=== PATIENT | male | born 1935 | race Caucasian/White ===

== ENCOUNTER → 2016-11-24 | Outpatient (CLI) | payer BC, MEDICARE ==
--- NOTE | 2016-12-17 00:03 | ECWPNPC ---
PATIENT NAME: ASA SURESH V : 1935 GENDER: MALE VISIT DATE: 11/24/2016 DISCHARGE DATE: 11/24/16 1257 VISIT LOCKED DATE TIME: PHYSICIAN: HELEN RAI RESOURCE: HELEN RAI REASON FOR APPOINTMENT 1. BACK PAIN HISTORY OF PRESENT ILLNESS NEW PATIENT CONSULT: WHEN DID YOUR PAIN FIRST START? . BRIEFLY DESCRIBE HOW YOUR PAIN STARTED? . HOW DOES YOUR PAIN CHANGE WITH TIME? . DOES YOUR PAIN AWAKEN YOU FROM SLEEP? . HOW MANY HOURS OF SLEEP DO YOU NORMALLY GET? . ANY DIAGNOSTIC TESTING? . FACILITY WHERE TESTS WERE DONE? ____. PAIN TREATMENT TREATMENT YES CANCER HAVE YOU EVER HAD ANY TYPE OF CANCER?NO NO. PAIN SCREENING: PATIENT HAS A COMPLAINT OF ACUTE OR CHRONIC PAIN YES FALL RISK SCREENING: SCREENING :NO FALLS IN THE PAST YEAR FLORES INVENTORY: QUESTIONNAIRE ASSESSEDTBD DID NOT COMPLETE FLORES'S DEPRESSION SELF INVENTORY. DENIES WHEN ASKED ANY SUICIDAL OR HOMICIDAL IDEATION SCORE VALUE CALCULATED TBD TODAY'S VISIT: NOTES: REFERRED BY Tj RODRIGUEZ PA-C FOR LOW BACK AND LEG PAIN . PAIN HAS BEEN PRESENT FOR AT LEAST ONE YEAR ANS HAS BEEN PARTICULARLY BAD OVER THE LAST MONTH. PAIN INTERMITTANTLY RADIATES TO BOTH LEGS. HAS BEEN HAVING TROUBLE WITH WALKING. HAS BEEN 'SHUFFLING&QUOT;. HAS SOME TROUBLE STOPPING. WAS SEEN AT [facility] AND HAD INJECTIONS TO LOW BACK WHICH WAS HELPFUL PER DAUGHTER AND PER PATIENT FOR A WEEK. MRI RADIOLOGY DONE. NO RECENT FALLS. NO DIFFERENCE IN SIDES. NO DIFFICULTY WITH BOWELS. NOCTURIA X 1. SEES CARDIOLOGY IN [place]. NO. CURRENT MEDICATIONS TAKING JANUMET 50-500 MG TABLET 1 TABLET WITH MEALS ORALLY TWICE A DAY TAKING SIMVASTATIN 20 MG TABLET 1 TABLET IN THE EVENING ORALLY ONCE A DAY TAKING MULTIVITAMINS CAPSULE 1 TABLET ORALLY ONCE A DAY TAKING FISH OIL 1000 MG CAPSULE 1 CAPSULE ORALLY ONCE A DAY TAKING IRBESARTAN 300 MG TABLET 1 TABLET ORALLY ONCE A DAY TAKING ASPIRIN 81 MG 1 TAB ORAL DAILY TAKING BYSTOLIC 20 MG TABLET 1 TABLET ORALLY ONCE A DAY TAKING HYDROCHLOROTHIAZIDE 12.5 MG TABLET 1 TABLET ORALLY ONCE A DAY (DOSE NOT CONFIRMED) TAKING AMLODIPINE BESYLATE 5 MG TABLET 1 TABLET ORALLY ONCE A DAY (DOSE NOT CONFIRMED) TAKING DOXAZOSIN MESYLATE 1 MG TABLET 1 TABLET ORALLY ONCE A DAY (DOSE NOT CONFIRMED) NOT-TAKING CARVDILOL 3.125MG TABLET DIRECTED ORAL NOT-TAKING VITAMIN D-[address] 2000 UNIT TABLET 1 TABLET ORALLY ONCE A DAY NOT-TAKING FLOMAX 0.4 MG CAPSULE 1 CAPSULE 30 MINUTES AFTER THE SAME MEAL EACH DAY ORALLY ONCE A DAY MEDICATION LIST REVIEWED AND RECONCILED WITH THE PATIENT PAST MEDICAL HISTORY HYPERLIPIDEMIA KIDNEY STONE HTN DM, 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 SURGICAL HISTORY OPEN HEART SURGERY (. [facility]) 2006 SOCIAL HISTORY GENERAL: TOBACCO USE ARE YOU A:NONSMOKER RECREATIONAL DRUG USE DRUG USE?NO CAFFEINE CAFFEINE USE?YES HOW OFTEN AND HOW MUCH? 1 CUP COFFEE PER DAY PSYCHOLOGICAL HX TREATMENTNO PAIN CLINIC PFS, CLERGY, PUBLIC HEALTH REFERRALS CLERGY REFERRAL NEEDED?NO WAS THE PROVIDER NOTIFIED OF ANY PERTINENT INFO?NO PFS REFERRAL NEEDED?NO PUBLIC HEALTH REFERRAL NEEDED?NO PATIENT: ____. ADVANCED DIRECTIVES HEALTH CARE PROXY?NO HEALTH CARE PROXY INFORMATION GIVEN. POWER OF SORTING SUPERVISOR?NO HOSPITALIZATION/MAJOR DIAGNOSTIC PROCEDURE SURGERY REVIEW OF SYSTEMS CONSTITUTIONAL: ANY CHANGE IN YOUR MEDICAL CONDITION? NO . CHILLS NO . FEVER NO . INFECTION: DO YOU HAVE NEW INFECTIONS? NO . DO YOU HAVE HISTORY OF MRSA? NO . MUSCULOSKELETAL: ANY NEW PATTERNS OF PAIN OR NUMBNESS? NO . SYTEMIC LUPUS NO . GASTROENTEROLOGY: ANY NEW CHANGE IN BOWEL CONTROL? NO . BARRETTS ESOPHAGUS NO . CIRRHOSIS NO . HEPATITIS NO . LIVER FAILURE NO . ACID REFLUX NO . UNEXPLAINED WEIGHT LOSS NO . GENITOURINARY: ANY NEW CHANGE IN BLADDER CONTROL? NO . IS THERE A CHANCE YOU COULD BE ? NO . HEMATOLOGY/LYMPH: DO YOU TAKE ANY BLOOD THINNERS? (FOR EXAMPLE- COUMADIN, PLAVIX, AGGRENOX, PLATEL, PRADAXA, OR XARELTO) NO . WHEN WAS YOUR LAST DOSE? DATE: TIME: . LOW PLATELET COUNT NO . SICKLE CELL DISEASE NO . VON WILLIEBRANDS NO . FACTOR V LEIDEN NO . THALLASEMIA NO . ANEMIA NO . EASY BRUISING NO . NEUROLOGY: HAVE YOU FALLEN IN THE PAST 6 MONTHS? NO . ANY NEW EXTREMITY NUMBNESS OR WEAKNESS? NO . HEAD INJURY NO . DEMENTIA NO . CEREBRAL PALSY NO . MULTIPLE SCLEROSIS NO . DIZZINESS YES - RIGHT NOW . HEADACHE NO . STROKES NO . VERTIGO NO . CARDIOLOGY: DO YOU HAVE A PACEMAKER OR DEFIBRILLATOR? NO . ANGINA NO . HEART ATTACK 2007 - CABG. . HEART SURGERY YES . CONGESTIVE HEART FAILURE/FLUID OVERLOAD NO . CHEST PAIN NO . HIGH BLOOD PRESSURE YES - ON MULTIPLE MEDS . IRREGULAR HEART BEAT NO . RESPIRATORY: HAVE YOU BEEN SICK IN THE PAST WEEK? NO . FEVER NO . FLU LIKE SYMPTOMS? NO . CPAP NO . BYPAP NO . ASTHMA NO . EMPHYSEMA NO . CHRONIC LUNG DISEASES NO . SHORTNESS OF BREATH ON EXERTION NO . DO YOU USE ANY TYPE OF TOBACCO (SMOKE, SMOKELESS, CHEW)? QUIT 50 YEARS AGO . COUGH YES, WITH WHITE/YELLOW PRODUCTION . SNORING NO . INTEGUMENTARY: DO YOU HAVE ANY RASHES OR OPEN SORES? NO - DRY BUT NO EXCEMA . ALLERGIC/IMMUNO: ARE YOU ALLERGIC TO SHELLFISH OR IV DYE? NO . ANY NEW ALLERGIES? NO . PSYCHIATRIC: DO YOU HAVE THOUGHTS OF HURTING YOURSELF OR SOMEONE ELSE? NO . ARE YOU ABUSED, NEGLECTED, OR IN AN UNSAFE ENVIRONMENT? NO . ENDOCRINOLOGY: ARE YOU DIABETIC? YES . THYROID DISORDER NO . OTHER: DO YOU NEED ANY PRESCRIPTIONS? NO . IF YES, PLEASE LIST: ____ . ANY NEW PROBLEMS WITH YOUR MEDICATIONS? NO . WHEN DID YOU LAST EAT? ____ . WHEN DID YOU LAST DRINK? ____ . WHAT DID YOU LAST DRINK? ____ . NAME OF PERSON DRIVING YOU HOME? ____ . DO YOU HAVE ANY OTHER QUESTIONS OR CONCERNS NO . REVIEWED BY: PROVIDER: HELEN RAI NETWORK LEAD . VITAL SIGNS WT 194 LBS, HT 5'8", BMI 29.49 INDEX, BP 86/51 MM HG, HR 75 /MIN, RR 16 /MIN, TEMP 96.4 F, OXYGEN SAT % 99%, NA INITIALS SC 11:31RN IS AWARE OF PT"S [id number] B/P 96/57. Abdirahman RAMOS RN. EXAMINATION GENERAL EXAMINATION: PSYCHALERT , ORIENTED X 3 , APPROPRIATE MOOD AND AFFECT , TALKATIVE AND JOKING. HEENT:HARD OF HEARING., NORMOCEPHALIC, NO LYMPHADENOPATHY, NO THYROMEGLY. LUNGS:CLEAR TO AUSCULTATION BILATERALLY, NO WHEEZES, RALES OR RHONCHI. HEART:NORMAL S1S2, NO MURMURS, CLICK OR RUBS. MUSCULOSKELETAL:MUSCLE STRENGTH TESTING 5/5 BILATERAL LOWER EXTREMITIES, PALPATION: POSITIVE FOR PAIN OVER LUMBAR SPINOUS PROCESSES AND ACROSS THE LUMBOSACRAL AXIS. SLOW TO RISE TO STANDING POSITION. POSITIVE SLR AT 20 DEGREES BILATERALLY.. NEUROLOGIC EXAM:CN'S II-XII GROSSLY INTACT, WITH THE EXCEPTION OF HEARING. NO SPECIFIC SENSORY DEFICET IN LOWER EXTREMITIES. DIAGNOSTIC TESTS REVIEWEDMRI OF LUMBAR SPINE WITH AND WITHOUT CONTRAST COMPLETED ON 02/27/16. THIS DEMONSTRATES 1. DIFFUSE DISC BULGE AT L2-3 WITH MINIMAL THECAL SAC COMPRESSION. 2. MINIMAL CENTRAL CANAL STENOSIS AT THE L3-4 LEVEL SECONDARY TO DISC BULGE, LIGAMENTOUS AND FACET HYPERTROPHY. 3. SEVERE CENTRAL CANAL STENOSIS AT THE L4-5 LEVEL SECONDARY TO DISC BULGE , LIGAMENTOUS AND FACET HYPERTROPHY AND BILATERAL SYNOVIAL CYSTS. THE CYSTS HAVE DECREASED IN SIZE SINCE PREVIOUS STUDY OF 09/24/15. 4. DIFFUSE DISC BULGE AT THE L5S1 LEVEL. THERE IS COMPRESSION OF THE L5 NERVES IN THE NEURAL FORAMINA.. 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 NEELY INFORMATION REGARDING PROCEDURE GIVEN TO PT.. PROCEDURE CODES FA211 ESTABILISHED PATIENT [facility] FACILITY CHARGE FOLLOW UP AFTER INJECTION (REASON: MAGGY - NEED INJECTION /PROCEDURE NOTES FROM DR STORM AT [facility]. KATHERINE NEED DAUGHTER ON FIRST CONTACT) ELECTRONICALLY SIGNED BY [place] ON 12/16/2016 AT 01:27 PM EST DISCLAIMER : THIS IS A VISIT SUMMARY EXTRACTED FROM THE [employer] CHART. IT IS NOT A COPY OF THE [employer] PROGRESS NOTE. MTDEdward
== END | disposition home or self-care (01) ==
LOC: M PAIN 11:20
PROVIDERS: ATTEND Nurse Practitioner Family
DX: G89.29 Other chronic pain (principal); M51.26 Other intervertebral disc displacement, lumbar region; R29.898 Other symptoms and signs involving the musculoskeletal system; M48.06 Spinal stenosis, lumbar region; E78.5 Hyperlipidemia, unspecified; I10 Essential (primary) hypertension; E11.9 Type 2 diabetes mellitus without complications; I25.2 Old myocardial infarction; M12.88 Other specific arthropathies, not elsewhere classified, other specified site; M51.27 Other intervertebral disc displacement, lumbosacral region; M71.38 Other bursal cyst, other site; Z79.82 Long term (current) use of aspirin; Z79.899 Other long term (current) drug therapy; Z87.74 Personal history of (corrected) congenital malformations of heart and circulatory system

== ENCOUNTER 2016-12-01 12:36 | Emergency (ER) | payer BC, MEDICARE ==
--- NOTE | 2016-12-01 14:15 | REP ---
CHEST X-RAY: Two views. HISTORY: Cough. FINDINGS: AP and lateral views of the chest show the clear well inflated lungs and sharp pleural angles. Cardiomediastinal silhouette is remarkable only for median sternotomy wires and surgical clips. There are degenerative changes in the thoracic spine. Pulmonary vasculature is not increased. IMPRESSION: Prior sternotomy. No acute disease. Signed by Amanuel Lewis MD 12/01/2016 03:01 P
[2016-12-01 14:45] LABS: BASO % 0.6 % (0.0-1.0); EOS # 0.3 K/mm3 (0.0-0.50); LARGE UNSTAINED CELL # 0.1 K/mm3 (0.0-0.4); LARGE UNSTAINED CELL % 0.9 % (0.0-4.0); LYMPH # 1.1 K/mm3 (1.5-4.5); LYMPH % 16.1 % (24.0-44.0); MEAN CORPUSCULAR HEMOGLOBIN 30.6 pg (27.0-33.0); MEAN CORPUSCULAR HGB CONC 33.9 g/dl (32.0-36.5); MEAN CORPUSCULAR VOLUME 90.4 fl (80.0-96.0); MONO # 0.4 K/mm3 (0.0-0.8); MONO % 5.5 % (0.0-5.0); PLATELET COUNT, AUTOMATED 201 k/mm3 (150-450); RED CELL DISTRIBUTION WIDTH 12.5 % (11.5-14.5); WHITE BLOOD COUNT 6.9 K/mm3 (4.0-10.0)
[2016-12-01 15:06] LABS: CALCIUM LEVEL 9.1 MG/DL (8.8-10.2); CREATININE FOR GFR 1.54 MG/DL (0.70-1.30); GLOMERULAR FILTRATION RATE 46.2 (>35); POTASSIUM SERUM 4.1 MEQ/L (3.5-5.1)
--- NOTE | 2016-12-01 16:03 | REP ---
CT of the chest without IV contrast: Comparison is the plain film PA and lateral study performed earlier today. There are no comparison chest CTs. There are no lung masses or nodules. There are no infiltrates or effusions. There is no mediastinal or axillary lymphadenopathy. In the absence of IV contrast the study is insensitive for hilar adenopathy. The thoracic aorta is unremarkable. There is occasional calcified atheroma. Cardiac size is normal. There is no pericardial effusion. There are for a round low density lesions in the medial lateral segments of the hepatic left lobe, unchanged in size shape or appearance from the abdomen CT of 04/30/2014, likely hepatic cysts. The right lobe is unremarkable. The gallbladder, pancreas, spleen, adrenals and visualized renal upper poles are unremarkable. Impression: Negative CT scan of the chest. There are several low density lesions in the left lobe of the liver, unchanged, compatible with hepatic cysts. Signed by Richard Talbert MD 12/01/2016 03:55 P
[2016-12-01] MEDS ORDERED: ALBUTEROL 90 MCG/ACT 8GM HFA INHALER As Ordered ONE (16:23)
--- NOTE | 2016-12-01 16:59 | EDDOCDS ---
Physician Documentation [facility] Name: Dom Aldrich Age: 81 yrs Sex: Male : 1935 Arrival Date: 12/01/2016 Time: 12:36 Bed 18 Private MD: Sridhar Guillen Disposition: 12/01 16:13 Critical Care: Critical care not applicable. pc Disposition: 12/01/16 16:37 Discharged to Home/Self Care. Impression: Cough - post-infectious . - Condition is Stable. - Discharge Instructions: Cough, Adult. - Prescriptions for Albuterol Sulfate 90 mcg/actuation Inhalation HFA Aerosol Inhaler - inhale 2 puff by INHALATION route every 4 hours As needed; 1 Inhaler. - Medication Reconciliation, Local Pharmacy Hours form. - Follow up: Sridhar Guillen; When: Call to arrange an appointment; Reason: Recheck today's complaints, Continuance of care. - Problem is an ongoing problem. - Symptoms have improved. HPI: 14:32 This 81 yrs old Male presents to ER via Walkin/Carried/Asstd with complaints pc of Chest Congestion, Cough. 14:32 The history is obtained from the patient, the patient's family/friend. He has had a pc nonproductive cough for 2+ weeks. He denies having any fevers or chills, chest pain, orthopnea or PND. He was seen at an urgent care last week, when his daughter first knew of his symptoms, and was started on ABX for bronchitis. He has not been eating very well, is less energetic than usual and she does not feel he is improving. Historical: - Allergies: no known allergies; - Home Meds: 1. cefuroxime axetil 500 mg Oral tab 2 times per day 2. Tylenol PM 25-500 mg-mg/mL Oral soln daily 3. irbesartan 300 mg oral tab once daily 4. Janumet 50-500 mg oral tab 5. aspirin 81 mg Oral tab once daily 6. Bystolic 10 mg oral tab once daily 7. Fish Oil Oral daily 8. multivitamin Oral tab daily 9. hydrochlorothiazide 25 mg Oral tab once daily 10. simvastatin 20 mg Oral tab once daily 11. amlodipine 2.5 mg Oral tab once daily 12. doxazosin 4 mg oral tab once daily - PMHx: Hypercholesterolemia; Hypertension; Diabetes - NIDDM: controlled; - PSHx: open heart; - The history from nurses notes was reviewed: and I agree with what is documented. - Social history: Smoking status: Patient states former smoker of tobacco. No barriers to communication noted, The patient speaks fluent Malay, Speaks appropriately for age. - : The pt / caregiver states he / she is not on anticoagulants. Home medication list is obtained from the patient, family members. - Hospitalizations: : No recent hospitalization is reported. - Exposure Risk Screening:: None identified. - Immunization history:: All immunizations up-to-date. - Family history: Not pertinent. - Social history:: the patient is a former smoker, the patient does not drink alcohol. ROS: 14:32 All systems are negative except as listed. pc Exam: 14:32 General Appearance: no acute distress, alert, asleep, lying flat on his right side. pc 14:32 EENT: normal eye inspection, ears, nose and throat normal, pharynx normal, mucous membranes moist 14:32 Neck: The exam reveals no acute abnormalities. ROM is normal and painless. No nuchal rigidity is noted.. 14:32 Respiratory: no respiratory distress, normal breath sounds, chest non-tender. 14:32 CVS: regular pulse rate, regular rhythm, normal S1 and S2, no murmurs, strong peripheral pulses, normal capillary refill. 14:32 Abdomen: soft, non-tender, no organomegaly, normal bowel sounds, no masses appreciated, no hernias palpated with/without gravity or Valsalva 14:32 Back: normal inspection. 14:32 Skin: skin color is normal, warm, dry. 14:32 Extremities: The extremities have a grossly normal appearance, are non-tender, without acute ROM abnormalities, no pedal edema. 14:32 Neuro: oriented x 3, cranial nerves normal as tested, no motor deficits, no sensory deficits. 14:32 Psych: normal mood. Vital Signs: 12:38 BP 101 / 53; Pulse 85; Resp 18 S; Temp 97.3(O); Pulse Ox 99% on R/A; Weight 88 kg / dd6 194.01 lbs (R); Height 5 ft. 8 in. (172.72 cm) (R); 14:58 Pulse 66 MON; Pulse Ox 94% ; hs1 14:58 BP 139 / 63 (auto/); hs1 15:13 Pulse 66 MON; Pulse Ox 93% ; hs1 15:13 BP 134 / 63 (auto/); hs1 15:27 Pulse 64 MON; Pulse Ox 95% ; hs1 15:28 BP 158 / 67 (auto/); hs1 15:43 Pulse 66 MON; Pulse Ox 97% ; hs1 15:43 BP 150 / 67 (auto/); hs1 15:58 Pulse 68 MON; Pulse Ox 96% ; hs1 15:58 BP 178 / 72 (auto/); hs1 16:13 BP 172 / 74 (auto/); hs1 16:13 Pulse 68 MON; Pulse Ox 95% ; hs1 16:27 Pulse 70 MON; Pulse Ox 98% ; hs1 16:28 BP 167 / 70 (auto/); hs1 16:57 BP 127 / 61; Pulse 77; Resp 18; Temp 99.1(O); Pulse Ox 98% ; Pain 0/10; hs1 12:38 Body Mass Index 29.50 (88.00 kg, 172.72 cm) dd6 MDM: 13:25 Chest, 2 View (pa\E\lat) Ordered. EDMS 14:28 IV Saline Lock ordered. pc 14:28 Cat Wagon Operator/Pulse Ox/q 30 min VS ordered. pc 14:29 CBC with Diff Ordered. EDMS 14:29 MED Profile Ordered. EDMS 14:29 BNP Ordered. EDMS 14:29 CIP Ordered. EDMS 14:29 Troponin Ordered. EDMS 14:29 ECG WITH READING ER PHYS+CARDIAG ordered. EDMS 14:32 Differential Diagnosis: persistent cough without fever. Plan: labs, EKG, CXR. Test pc interpretation: X-RAY - interpreted by Radiologist and personally reviewed, 2 view chest, no acute disease. 14:47 Test interpretation: EKG. pc 14:57 CBC with Diff Reviewed. pc 15:01 Chest, 2 View (pa\E\lat) Reviewed. pc 15:07 MED Profile Reviewed. pc 15:07 BNP Reviewed. pc 15:07 Troponin Reviewed. pc 15:10 MED Profile Reviewed. pc 15:10 CIP Reviewed. pc 15:10 Troponin Reviewed. pc 15:10 CT Chest Without Contrast Ordered. EDMS 16:13 Data reviewed: old medical records, vital signs, nurses notes, EKG(s), lab test pc results, all radiology studies and available results. Test interpretation: LAB - all labs as ordered have been reviewed, interpreted and considered in the overall management of the clinical presentation; interpreted by Radiologist and personally reviewed, Chest CT; liver densities as on prior studies, else negative. The patient has been re-examined and re-evaluated. The clinical presentation did not require any ED treatment or interventions. Disposition: The historical points, examination findings, and any diagnostic results supporting the provided diagnosis, were discussed with the patient or legal guardian. The need for outpatient follow up with the provider listed on their discharge instructions was discussed. They were encouraged to return to [facility], or the nearest ED, if symptoms worsen/persist, or for any other questions/concerns. 16:14 Ventolin Inhaler 2 puffs Inhalation once; dispense to go: 2 puffs QID prn ordered. pc 16:14 Call Respiratory ordered. pc 16:14 MDI teaching with Spacer ordered. pc 16:19 Call Respiratory complete. hs1 EC:47 Rate is 70 beats/min. Rhythm is regular, Normal Sinus Rhythm with 1st degree heart pc block. QRS [place] is Normal. NE interval is prolonged at 224 msec. QRS interval is normal. QT interval is normal. Q waves are Old in lead III. T waves are Inverted in leads V5, V6. No ST changes noted. Clinical impression: Normal Sinus Rhythm, 1st degree heart block, Inferior CO - age indeterminate, and PRWP. Administered Medications: 16:28 Drug: Ventolin 2 puffs [Ventolin HFA 90 mcg/actuation aerosol inhaler (2 puffs)] Route: rs5 Inhalation; Signatures: Dispatcher [employer] EDDejuan Rubio MD MD pc Elen Martinez RN RN hs1 Rubina Wynn RN RN Cuong Ibrahim RT rs5 EMMETT
--- NOTE | 2016-12-01 17:00 | EDDOCDS ---
Nurse's Notes [facility] Name: Dom Aldrich Age: 81 yrs Sex: Male : 1935 Arrival Date: 12/01/2016 Time: 12:36 Bed 18 Private MD: Sridhar Guillen Diagnosis: [id number] Presentation: 12/01 12:46 Presenting complaint: Patient states: Cough and congestion x 2 weeks. Has been taking ead cefuroxime since , daughter in law reports pt has had no improvement. Adult Sepsis Screening: The patient does not have new or worsening altered mentation. Patient's respiratory rate is less than 22. Systolic blood pressure is greater than 100. Patient has a qSOFA score of 0- Negative Sepsis Screen. Suicide/Homicide risk assessment- the patient denies having any suicidal and/or homicidal ideations and does not present with any other emotional, behavioral or mental health complaints. Status: Patient is not a job service specialist or dependent. Transition of care: patient was not received from another setting of care. 12:46 Acuity: PERRY Level 4 ead 12:46 Method Of Arrival: Walkin/Carried/Asstd ead Triage Assessment: 12:51 General: Appears in no apparent distress, comfortable, Behavior is appropriate for age, ead cooperative. Pain: Location: aches all over. Neurological: Level of Consciousness is awake, alert, obeys commands, Oriented to person, place, time. Respiratory: Onset: The symptoms/episode began/occurred cough x 2 weeks, Airway is patent Respiratory effort is even, unlabored. Derm: Skin is pink, warm & dry. Historical: - Allergies: no known allergies; - Home Meds: 1. cefuroxime axetil 500 mg Oral tab 2 times per day 2. Tylenol PM 25-500 mg-mg/mL Oral soln daily 3. irbesartan 300 mg oral tab once daily 4. Janumet 50-500 mg oral tab 5. aspirin 81 mg Oral tab once daily 6. Bystolic 10 mg oral tab once daily 7. Fish Oil Oral daily 8. multivitamin Oral tab daily 9. hydrochlorothiazide 25 mg Oral tab once daily 10. simvastatin 20 mg Oral tab once daily 11. amlodipine 2.5 mg Oral tab once daily 12. doxazosin 4 mg oral tab once daily - PMHx: Hypercholesterolemia; Hypertension; Diabetes - NIDDM: controlled; - PSHx: open heart; - The history from nurses notes was reviewed: and I agree with what is documented. - Social history: Smoking status: Patient states former smoker of tobacco. No barriers to communication noted, The patient speaks fluent Mauritian, Speaks appropriately for age. - : The pt / caregiver states he / she is not on anticoagulants. Home medication list is obtained from the patient, family members. - Hospitalizations: : No recent hospitalization is reported. - Exposure Risk Screening:: None identified. - Immunization history:: All immunizations up-to-date. - Family history: Not pertinent. - Social history:: the patient is a former smoker, the patient does not drink alcohol. Screenin:39 Screening information is obtained from the patient. hs1 16:31 Fall risk: At risk due to gait disturbance, The following interventions are performed hs1 due to a positive Fall Risk Screen: Fall Risk is added to Special Handling on the patient Summary Screen. A Fall Risk Bracelet was applied to the patient. Side Rails are placed in the up position. A Call Cano is given with instruction to call for help when getting out of bed. Fall Alert bracelet is placed on the patient. Assistance ADL's: requires no assistance with activities of daily living. Abuse/DV Screen: The patient / caregiver reports he/she is: not in a situation that causes fear, pain or injury. Nutritional screening: No deficits noted. Advance Directives: There is no active DNR order. home support is adequate. Assessment: 14:30 General: Appears in no apparent distress, Behavior is appropriate for age, cooperative. hs1 Cardiovascular: Rhythm is sinus rhythm No ectopy. Cardiovascular: Capillary refill is brisk Edema is absent. Chest pain is denied. Respiratory: Airway is patent Respiratory effort is even, unlabored, Respiratory pattern is regular, symmetrical, Breath sounds are coarse bilaterally. Derm: Skin is pink, warm & dry. normal. 15:45 General: Appears in no apparent distress, Behavior is appropriate for age, cooperative. hs1 General: Appears to be sleeping. Pain: Denies pain. Cardiovascular: Rhythm is sinus rhythm No ectopy. Chest pain is denied. Vital Signs: 12:38 BP 101 / 53; Pulse 85; Resp 18 S; Temp 97.3(O); Pulse Ox 99% on R/A; Weight 88 kg (R); dd6 Height 5 ft. 8 in. (172.72 cm) (R); 14:58 Pulse 66 MON; Pulse Ox 94% ; hs1 14:58 BP 139 / 63 (auto/); hs1 15:13 Pulse 66 MON; Pulse Ox 93% ; hs1 15:13 BP 134 / 63 (auto/); hs1 15:27 Pulse 64 MON; Pulse Ox 95% ; hs1 15:28 BP 158 / 67 (auto/); hs1 15:43 Pulse 66 MON; Pulse Ox 97% ; hs1 15:43 BP 150 / 67 (auto/); hs1 15:58 Pulse 68 MON; Pulse Ox 96% ; hs1 15:58 BP 178 / 72 (auto/); hs1 16:13 BP 172 / 74 (auto/); hs1 16:13 Pulse 68 MON; Pulse Ox 95% ; hs1 16:27 Pulse 70 MON; Pulse Ox 98% ; hs1 16:28 BP 167 / 70 (auto/); hs1 16:57 BP 127 / 61; Pulse 77; Resp 18; Temp 99.1(O); Pulse Ox 98% ; Pain 0/10; hs1 12:38 Body Mass Index 29.50 (88.00 kg, 172.72 cm) dd6 Vitals: 12:38 Log In Time: December 01, 2016 at 12:36. dd6 ED Course: 12:37 Patient visited by Sanford Harrington PCA. dd6 12:37 Sridhar Guillen is Private Physician. dd6 12:37 Patient moved to Waiting dd6 12:39 Patient moved to Pre RCE dd6 12:47 Triage Initiated ead 14:02 Elen Martinez, GRACE is Primary Nurse. kr3 14:02 Patient moved to 18 kr3 14:15 Dejuan Ryan MD is Attending Physician. pc 14:25 Patient visited by Dejuan Ryan MD. pc 14:38 Troponin Sent. hs1 14:38 CIP Sent. hs1 14:38 BNP Sent. hs1 14:38 MED Profile Sent. hs1 14:38 CBC with Diff Sent. hs1 14:38 Inserted saline lock: 20 gauge in right antecubital area and blood collected. hs1 14:42 EKG done. (by ED staff). Reviewed by Dejuan Ryan MD. ct3 14:46 Accompanied by Caregiver, Patient has correct armband on for positive identification. ct3 Placed in gown. Bed in low position. Call light in reach. Side rails up X2. quality assurance monitor final on. Pulse ox on. NIBP on. 14:47 Patient visited by Karen West PCA. ct3 15:01 Chest, 2 View (pa\E\lat) Returned. EDMS 15:17 Patient visited by Elen Martinez RN. hs1 15:52 Chest, 2 View (pa\E\lat) Returned. EDMS 16:13 Patient visited by Elen Martinez RN. hs1 16:32 The patient / caregiver is instructed regarding the plan of care and ED course. hs1 16:37 Sridhar Guillen is Referral Physician. pc 16:44 CT Chest Without Contrast Returned. EDMS 16:58 Discontinued IV lock intact, bleeding controlled, pressure dressing applied, No hs1 redness/swelling at site. No procedures done that require assistance. Administered Medications: 16:28 Drug: Ventolin 2 puffs [Ventolin HFA 90 mcg/actuation aerosol inhaler (2 puffs)] Route: rs5 Inhalation; RT: 16:28 Initial MDI Given. Spacer used Number of puffs given: 2. rs5 Order Results: Lab Order: CBC with Diff; SPEC'M 12/01/16 14:35 Test: WHITE BLOOD COUNT; Value: 6.9; Range: 4.0-10.0; Units: K/mm3; Status: F Test: RED BLOOD COUNT; Value: 3.54; Range: 4.30-6.10; Abnormal: Below low normal; Units: M/mm3; Status: F Test: HEMOGLOBIN; Value: 10.8; Range: 14.0-18.0; Abnormal: Below low normal; Units: g/dl; Status: F Test: HEMATOCRIT; Value: 32.0; Range: 42.0-52.0; Abnormal: Below low normal; Units: %; Status: F Test: MEAN CORPUSCULAR VOLUME; Value: 90.4; Range: 80.0-96.0; Units: fl; Status: F Test: MEAN CORPUSCULAR HEMOGLOBIN; Value: 30.6; Range: 27.0-33.0; Units: pg; Status: F Test: MEAN CORPUSCULAR HGB CONC; Value: 33.9; Range: 32.0-36.5; Units: g/dl; Status: F Test: RED CELL DISTRIBUTION WIDTH; Value: 12.5; Range: 11.5-14.5; Units: %; Status: F Test: PLATELET COUNT, AUTOMATED; Value: 201; Range: 150-450; Units: k/mm3; Status: F Test: NEUTROPHILS %; Value: 73.0; Range: 36.0-66.0; Abnormal: Above high normal; Units: %; Status: F Test: LYMPH %; Value: 16.1; Range: 24.0-44.0; Abnormal: Below low normal; Units: %; Status: F Test: MONO %; Value: 5.5; Range: 0.0-5.0; Abnormal: Above high normal; Units: %; Status: F Test: EOS %; Value: 4.0; Range: 0.0-3.0; Abnormal: Above high normal; Units: %; Status: F Test: BASO %; Value: 0.6; Range: 0.0-1.0; Units: %; Status: F Test: LARGE UNSTAINED CELL %; Value: 0.9; Range: 0.0-4.0; Units: %; Status: F Test: NEUTROPHILS #; Value: 5.0; Range: 1.8-7.7; Units: K/mm3; Status: F Test: LYMPH #; Value: 1.1; Range: 1.5-4.5; Abnormal: Below low normal; Units: K/mm3; Status: F Test: MONO #; Value: 0.4; Range: 0.0-0.8; Units: K/mm3; Status: F Test: EOS #; Value: 0.3; Range: 0.0-0.50; Units: K/mm3; Status: F Test: BASO #; Value: 0.0; Range: 0.0-0.2; Units: K/mm3; Status: F Test: LARGE UNSTAINED CELL #; Value: 0.1; Range: 0.0-0.4; Units: K/mm3; Status: F Lab Order: MED Profile; SPEC'M 01/24/17 14:35 Test: GLUCOSE, FASTING; Value: 123; Range: 83-110; Abnormal: Above high normal; Units: MG/DL; Status: F Test: BLOOD UREA NITROGEN; Value: 40; Range: 7-18; Abnormal: Above high normal; Units: MG/DL; Status: F Test: CREATININE FOR GFR; Value: 1.54; Range: 0.70-1.30; Abnormal: Above high normal; Units: MG/DL; Status: F Test: GLOMERULAR FILTRATION RATE; Value: 46.2; Range: >35; Status: F Test: SODIUM LEVEL; Value: 144; Range: 136-145; Units: MEQ/L; Status: F Test: POTASSIUM SERUM; Value: 4.1; Range: 3.5-5.1; Units: MEQ/L; Status: F Test: CHLORIDE LEVEL; Value: 106; Range: 98-107; Units: MEQ/L; Status: F Test: CARBON DIOXIDE LEVEL; Value: 32; Range: 21-32; Units: MEQ/L; Status: F Test: ANION GAP; Value: 6; Range: 8-16; Abnormal: Below low normal; Units: MEQ/L; Status: F Test: CALCIUM LEVEL; Value: 9.1; Range: 8.8-10.2; Units: MG/DL; Status: F Test Note: ; Units are mL/min/1.73 m2 Chronic Kidney Disease Staging per NKF: Stage I & II GFR >=60 Normal to Mildly Decreased Stage III GFR 30-59 Moderately Decreased Stage IV GFR 15-29 Severely Decreased Stage V GFR <15 Very Little GFR Left ESRD GFR <15 on FNPS Lab Order: BNP; SPEC'M 12/01/16 14:35 Test: BRAIN NATRIURETIC PEPTIDE; Value: 67.7; Range: <100; Units: PG/ML; Status: F Lab Order: CIP; SPEC12/01/16 14:35 Test: CPK CREATINE PHOSPHOKINASE; Value: 34; Range: 39-308; Abnormal: Below low normal; Units: U/L; Status: F Test: CK-MB VALUE MASS; Value: 1.0; Range: 0.0-3.6; Units: NG/ML; Status: F Test: MB/CK RELATIVE INDEX; Value: 2.94; Range: < OR =4; Status: F Test Note: ; DIAGNOSIS CRITERIA MMB ng/ml Relative Index (RI) NON-AMI < or = 5 N/A DOTY ZONE > 5 < or = 4 AMI > 5 > 4 Lab Order: Troponin; VINCENT'Peggy 12/01/16 14:35 Test: TROPONIN I; Value: 0.03; Range: < 0.10; Units: NG/ML; Status: F Test Note: ; Troponin I Reference Interval for [employer] LOCI: 99th Percentile= 0.00-0.045 ng/ml Risk Stratification: <= 0.10 ng/ml Decreased Risk for Adverse Clinical Events. 0.10-1.50 ng/ml Increased Risk for Adverse Clinical Events. Evaluation of additional criterion and/or repeat testing in 2-6 hours is suggested to rule out myocardial damage. >= 1.50 ng/ml Indicative of Myocardial Injury. Radiology Order: Chest, 2 View (pa\E\lat) Test: Chest, 2 View (pa\E\lat) REASON FOR EXAMINATION: Cough; CHEST X-RAY: Two views.; ; HISTORY: Cough.; ; FINDINGS: AP and lateral views of the chest show the clear well inflated lungs; and sharp pleural angles. Cardiomediastinal silhouette is remarkable only for; median sternotomy wires and surgical clips. There are degenerative changes in; the thoracic spine. Pulmonary vasculature is not increased.; ; IMPRESSION: Prior sternotomy. No acute disease.; ; ; Signed by; Amanuel Lewis MD 12/01/2016 03:01 P; Radiology Order: CT Chest Without Contrast Test: CT Chest Without Contrast REASON FOR EXAMINATION: former smoker, persistent cough; CT of the chest without IV contrast:; ; Comparison is the plain film PA and lateral study performed earlier today.; ; There are no comparison chest CTs.; ; There are no lung masses or nodules. There are no infiltrates or effusions.; ; There is no mediastinal or axillary lymphadenopathy. In the absence of IV; contrast the study is insensitive for hilar adenopathy.; ; The thoracic aorta is unremarkable. There is occasional calcified atheroma.; ; Cardiac size is normal. There is no pericardial effusion.; ; There are for a round low density lesions in the medial lateral segments of the; hepatic left lobe, unchanged in size shape or appearance from the abdomen CT of; 04/30/2014, likely hepatic cysts.; ; The right lobe is unremarkable. The gallbladder, pancreas, spleen, adrenals and; visualized renal upper poles are unremarkable.; ; Impression:; ; Negative CT scan of the chest. There are several low density lesions in the left; lobe of the liver, unchanged, compatible with hepatic cysts.; ; ; Signed by; Richard Talbert MD 12/01/2016 03:55 P; Outcome: 16:37 Discharge ordered by Provider. 16:58 Discharge Assessment: Patient awake, alert and oriented x 3. No cognitive and/or hs1 functional deficits noted. Patient verbalized understanding of disposition instructions. patient administered narcotics - no. The following High Risk Discharge criteria are identified: None. Discharged to home ambulatory. Condition: good. No special radiology studies were completed. Property sent home with patient. 16:58 Patient left the ED. hs1 Signatures: Dispatcher [employer] EDMS Dejuan Rayn MD MD pc Ladonna Traore,RN RN kr3 Sanford Harrington, CATALOG LIBRARY ASSISTANT CATALOG LIBRARY ASSISTANT dd6 Elen Martinez RN RN hs1 Karen West, CATALOG LIBRARY ASSISTANT CATALOG LIBRARY ASSISTANT ct3 Cuong Lara,RT RT rs5 Rubina Wynn,RN RN champd MTDD
--- NOTE | 2016-12-01 20:28 | ECGEPIP ---
Stationary ECG Study [facility] - ED Test Date: 2016-12-01 Pat Name: ASA SURESH Department: Room: - Gender: M Events Specialist: ct : 1935 Requested By: Dejuan Guaman Order Number: [id number] Reading MD: Emily Paige Measurements Intervals [place] Rate: 70 P: 83 [place]: 224 QRS: 19 QRSD: 84 T: 75 QT: 384 QTc: 416 Interpretive Statements SINUS RHYTHM WITH FIRST DEGREE AV BLOCK SEPTAL MYOCARDIAL INFARCTION, OF INDETERMINATE AGE NSTTW ABNORMALITY NO PRIOR FOR COMPARISON Electronically Signed On 12-01-2016 20:28:08 EST by Emily Paige
--- NOTE | 2016-12-03 17:59 | EDDOCDS ---
Physician Documentation [facility] Name: Dom Aldrich Age: 81 yrs Sex: Male : 1935 Arrival Date: 12/01/2016 Time: 12:36 Bed 18 Private MD: Sridhar Guillen Disposition: 12/01 16:13 Critical Care: Critical care not applicable. pc Disposition: 12/01/16 16:37 Discharged to Home/Self Care. Impression: Cough - post-infectious . - Condition is Stable. - Discharge Instructions: Cough, Adult. - Prescriptions for Albuterol Sulfate 90 mcg/actuation Inhalation HFA Aerosol Inhaler - inhale 2 puff by INHALATION route every 4 hours As needed; 1 Inhaler. - Medication Reconciliation, Local Pharmacy Hours form. - Follow up: Sridhar Guillen; When: Call to arrange an appointment; Reason: Recheck today's complaints, Continuance of care. - Problem is an ongoing problem. - Symptoms have improved. HPI: 14:32 This 81 yrs old Male presents to ER via Walkin/Carried/Asstd with complaints pc of Chest Congestion, Cough. 14:32 The history is obtained from the patient, the patient's family/friend. He has had a pc nonproductive cough for 2+ weeks. He denies having any fevers or chills, chest pain, orthopnea or PND. He was seen at an urgent care last week, when his daughter first knew of his symptoms, and was started on ABX for bronchitis. He has not been eating very well, is less energetic than usual and she does not feel he is improving. Historical: - Allergies: no known allergies; - Home Meds: 1. cefuroxime axetil 500 mg Oral tab 2 times per day 2. Tylenol PM 25-500 mg-mg/mL Oral soln daily 3. irbesartan 300 mg oral tab once daily 4. Janumet 50-500 mg oral tab 5. aspirin 81 mg Oral tab once daily 6. Bystolic 10 mg oral tab once daily 7. Fish Oil Oral daily 8. multivitamin Oral tab daily 9. hydrochlorothiazide 25 mg Oral tab once daily 10. simvastatin 20 mg Oral tab once daily 11. amlodipine 2.5 mg Oral tab once daily 12. doxazosin 4 mg oral tab once daily - PMHx: Hypercholesterolemia; Hypertension; Diabetes - NIDDM: controlled; - PSHx: open heart; - The history from nurses notes was reviewed: and I agree with what is documented. - Social history: Smoking status: Patient states former smoker of tobacco. No barriers to communication noted, The patient speaks fluent Greek, Speaks appropriately for age. - : The pt / caregiver states he / she is not on anticoagulants. Home medication list is obtained from the patient, family members. - Hospitalizations: : No recent hospitalization is reported. - Exposure Risk Screening:: None identified. - Immunization history:: All immunizations up-to-date. - Family history: Not pertinent. - Social history:: the patient is a former smoker, the patient does not drink alcohol. ROS: 14:32 All systems are negative except as listed. pc Exam: 14:32 General Appearance: no acute distress, alert, asleep, lying flat on his right side. pc 14:32 EENT: normal eye inspection, ears, nose and throat normal, pharynx normal, mucous membranes moist 14:32 Neck: The exam reveals no acute abnormalities. ROM is normal and painless. No nuchal rigidity is noted.. 14:32 Respiratory: no respiratory distress, normal breath sounds, chest non-tender. 14:32 CVS: regular pulse rate, regular rhythm, normal S1 and S2, no murmurs, strong peripheral pulses, normal capillary refill. 14:32 Abdomen: soft, non-tender, no organomegaly, normal bowel sounds, no masses appreciated, no hernias palpated with/without gravity or Valsalva 14:32 Back: normal inspection. 14:32 Skin: skin color is normal, warm, dry. 14:32 Extremities: The extremities have a grossly normal appearance, are non-tender, without acute ROM abnormalities, no pedal edema. 14:32 Neuro: oriented x 3, cranial nerves normal as tested, no motor deficits, no sensory deficits. 14:32 Psych: normal mood. Vital Signs: 12:38 BP 101 / 53; Pulse 85; Resp 18 S; Temp 97.3(O); Pulse Ox 99% on R/A; Weight 88 kg / dd6 194.01 lbs (R); Height 5 ft. 8 in. (172.72 cm) (R); 14:58 Pulse 66 MON; Pulse Ox 94% ; hs1 14:58 BP 139 / 63 (auto/); hs1 15:13 Pulse 66 MON; Pulse Ox 93% ; hs1 15:13 BP 134 / 63 (auto/); hs1 15:27 Pulse 64 MON; Pulse Ox 95% ; hs1 15:28 BP 158 / 67 (auto/); hs1 15:43 Pulse 66 MON; Pulse Ox 97% ; hs1 15:43 BP 150 / 67 (auto/); hs1 15:58 Pulse 68 MON; Pulse Ox 96% ; hs1 15:58 BP 178 / 72 (auto/); hs1 16:13 BP 172 / 74 (auto/); hs1 16:13 Pulse 68 MON; Pulse Ox 95% ; hs1 16:27 Pulse 70 MON; Pulse Ox 98% ; hs1 16:28 BP 167 / 70 (auto/); hs1 16:57 BP 127 / 61; Pulse 77; Resp 18; Temp 99.1(O); Pulse Ox 98% ; Pain 0/10; hs1 12:38 Body Mass Index 29.50 (88.00 kg, 172.72 cm) dd6 MDM: 13:25 Chest, 2 View (pa\E\lat) Ordered. EDMS 14:28 IV Saline Lock ordered. pc 14:28 Community Director/Pulse Ox/q 30 min VS ordered. pc 14:29 CBC with Diff Ordered. EDMS 14:29 MED Profile Ordered. EDMS 14:29 BNP Ordered. EDMS 14:29 CIP Ordered. EDMS 14:29 Troponin Ordered. EDMS 14:29 ECG WITH READING ER PHYS+CARDIAG ordered. EDMS 14:32 Differential Diagnosis: persistent cough without fever. Plan: labs, EKG, CXR. Test pc interpretation: X-RAY - interpreted by Radiologist and personally reviewed, 2 view chest, no acute disease. 14:47 Test interpretation: EKG. pc 14:57 CBC with Diff Reviewed. pc 15:01 Chest, 2 View (pa\E\lat) Reviewed. pc 15:07 MED Profile Reviewed. pc 15:07 BNP Reviewed. pc 15:07 Troponin Reviewed. pc 15:10 MED Profile Reviewed. pc 15:10 CIP Reviewed. pc 15:10 Troponin Reviewed. pc 15:10 CT Chest Without Contrast Ordered. EDMS 16:13 Data reviewed: old medical records, vital signs, nurses notes, EKG(s), lab test pc results, all radiology studies and available results. Test interpretation: LAB - all labs as ordered have been reviewed, interpreted and considered in the overall management of the clinical presentation; interpreted by Radiologist and personally reviewed, Chest CT; liver densities as on prior studies, else negative. The patient has been re-examined and re-evaluated. The clinical presentation did not require any ED treatment or interventions. Disposition: The historical points, examination findings, and any diagnostic results supporting the provided diagnosis, were discussed with the patient or legal guardian. The need for outpatient follow up with the provider listed on their discharge instructions was discussed. They were encouraged to return to [facility], or the nearest ED, if symptoms worsen/persist, or for any other questions/concerns. 16:14 Ventolin Inhaler 2 puffs Inhalation once; dispense to go: 2 puffs QID prn ordered. pc 16:14 Call Respiratory ordered. pc 16:14 MDI teaching with Spacer ordered. pc 16:19 Call Respiratory complete. hs1 17:02 Financial registration complete. :31 PENDING SALE TO [facility] Payment Agreement was scanned into [employer] and attached to record. 12/02 08:57 T-Sheet-- Draft Copy was scanned into [employer] and attached to record. EC/24 14:47 Rate is 70 beats/min. Rhythm is regular, Normal Sinus Rhythm with 1st degree heart pc block. QRS [place] is Normal. DE interval is prolonged at 224 msec. QRS interval is normal. QT interval is normal. Q waves are Old in lead III. T waves are Inverted in leads V5, V6. No ST changes noted. Clinical impression: Normal Sinus Rhythm, 1st degree heart block, Inferior OK - age indeterminate, and PRWP. Administered Medications: 16:28 Drug: Ventolin 2 puffs [Ventolin HFA 90 mcg/actuation aerosol inhaler (2 puffs)] Route: rs5 Inhalation; Signatures: Dispatcher [employer] EDMS Dejuan Ryan MD MD pc Barnhardt, Gloria, Reg Reg Elen Martinez RN RN hs1 Rubina Wynn RN RN Cuong Ibrahim RT rs5 The chart was reviewed and I authenticate all verbal orders and agree with the evaluation and treatment provided.Attachments: 17:31 PENDING SALE TO [facility] Payment Agreement 12/02 09:57 T-Sheet-- Draft Copy gb Chart Complete MTDD
--- NOTE | 2016-12-03 17:59 | EDDOCDS ---
Nurse's Notes [facility] Name: Asa Suresh Age: 81 yrs Sex: Male : 1935 Arrival Date: 12/01/2016 Time: 12:36 Bed 18 Private MD: Sridhar Guillen Diagnosis: [id number] Presentation: 12/01 12:46 Presenting complaint: Patient states: Cough and congestion x 2 weeks. Has been taking ead cefuroxime since , daughter in law reports pt has had no improvement. Adult Sepsis Screening: The patient does not have new or worsening altered mentation. Patient's respiratory rate is less than 22. Systolic blood pressure is greater than 100. Patient has a qSOFA score of 0- Negative Sepsis Screen. Suicide/Homicide risk assessment- the patient denies having any suicidal and/or homicidal ideations and does not present with any other emotional, behavioral or mental health complaints. Status: Patient is not a service desk team lead or dependent. Transition of care: patient was not received from another setting of care. 12:46 Acuity: PERRY Level 4 ead 12:46 Method Of Arrival: Walkin/Carried/Asstd ead Triage Assessment: 12:51 General: Appears in no apparent distress, comfortable, Behavior is appropriate for age, ead cooperative. Pain: Location: aches all over. Neurological: Level of Consciousness is awake, alert, obeys commands, Oriented to person, place, time. Respiratory: Onset: The symptoms/episode began/occurred cough x 2 weeks, Airway is patent Respiratory effort is even, unlabored. Derm: Skin is pink, warm & dry. Historical: - Allergies: no known allergies; - Home Meds: 1. cefuroxime axetil 500 mg Oral tab 2 times per day 2. Tylenol PM 25-500 mg-mg/mL Oral soln daily 3. irbesartan 300 mg oral tab once daily 4. Janumet 50-500 mg oral tab 5. aspirin 81 mg Oral tab once daily 6. Bystolic 10 mg oral tab once daily 7. Fish Oil Oral daily 8. multivitamin Oral tab daily 9. hydrochlorothiazide 25 mg Oral tab once daily 10. simvastatin 20 mg Oral tab once daily 11. amlodipine 2.5 mg Oral tab once daily 12. doxazosin 4 mg oral tab once daily - PMHx: Hypercholesterolemia; Hypertension; Diabetes - NIDDM: controlled; - PSHx: open heart; - The history from nurses notes was reviewed: and I agree with what is documented. - Social history: Smoking status: Patient states former smoker of tobacco. No barriers to communication noted, The patient speaks fluent Thai, Speaks appropriately for age. - : The pt / caregiver states he / she is not on anticoagulants. Home medication list is obtained from the patient, family members. - Hospitalizations: : No recent hospitalization is reported. - Exposure Risk Screening:: None identified. - Immunization history:: All immunizations up-to-date. - Family history: Not pertinent. - Social history:: the patient is a former smoker, the patient does not drink alcohol. Screenin:39 Screening information is obtained from the patient. hs1 16:31 Fall risk: At risk due to gait disturbance, The following interventions are performed hs1 due to a positive Fall Risk Screen: Fall Risk is added to Special Handling on the patient Summary Screen. A Fall Risk Bracelet was applied to the patient. Side Rails are placed in the up position. A Call Cano is given with instruction to call for help when getting out of bed. Fall Alert bracelet is placed on the patient. Assistance ADL's: requires no assistance with activities of daily living. Abuse/DV Screen: The patient / caregiver reports he/she is: not in a situation that causes fear, pain or injury. Nutritional screening: No deficits noted. Advance Directives: There is no active DNR order. home support is adequate. Assessment: 14:30 General: Appears in no apparent distress, Behavior is appropriate for age, cooperative. hs1 Cardiovascular: Rhythm is sinus rhythm No ectopy. Cardiovascular: Capillary refill is brisk Edema is absent. Chest pain is denied. Respiratory: Airway is patent Respiratory effort is even, unlabored, Respiratory pattern is regular, symmetrical, Breath sounds are coarse bilaterally. Derm: Skin is pink, warm & dry. normal. 15:45 General: Appears in no apparent distress, Behavior is appropriate for age, cooperative. hs1 General: Appears to be sleeping. Pain: Denies pain. Cardiovascular: Rhythm is sinus rhythm No ectopy. Chest pain is denied. Vital Signs: 12:38 BP 101 / 53; Pulse 85; Resp 18 S; Temp 97.3(O); Pulse Ox 99% on R/A; Weight 88 kg (R); dd6 Height 5 ft. 8 in. (172.72 cm) (R); 14:58 Pulse 66 MON; Pulse Ox 94% ; hs1 14:58 BP 139 / 63 (auto/); hs1 15:13 Pulse 66 MON; Pulse Ox 93% ; hs1 15:13 BP 134 / 63 (auto/); hs1 15:27 Pulse 64 MON; Pulse Ox 95% ; hs1 15:28 BP 158 / 67 (auto/); hs1 15:43 Pulse 66 MON; Pulse Ox 97% ; hs1 15:43 BP 150 / 67 (auto/); hs1 15:58 Pulse 68 MON; Pulse Ox 96% ; hs1 15:58 BP 178 / 72 (auto/); hs1 16:13 BP 172 / 74 (auto/); hs1 16:13 Pulse 68 MON; Pulse Ox 95% ; hs1 16:27 Pulse 70 MON; Pulse Ox 98% ; hs1 16:28 BP 167 / 70 (auto/); hs1 16:57 BP 127 / 61; Pulse 77; Resp 18; Temp 99.1(O); Pulse Ox 98% ; Pain 0/10; hs1 12:38 Body Mass Index 29.50 (88.00 kg, 172.72 cm) dd6 Vitals: 12:38 Log In Time: December 01, 2016 at 12:36. dd6 ED Course: 12:37 Patient visited by Sanford Harrington PCA. dd6 12:37 Sridhar Guillen is Private Physician. dd6 12:37 Patient moved to Waiting dd6 12:39 Patient moved to Pre RCE dd6 12:47 Triage Initiated ead 14:02 Elen Martinez, GRACE is Primary Nurse. kr3 14:02 Patient moved to 18 kr3 14:15 Dejuan Ryan MD is Attending Physician. pc 14:25 Patient visited by Dejuan Ryan MD. pc 14:38 Troponin Sent. hs1 14:38 CIP Sent. hs1 14:38 BNP Sent. hs1 14:38 MED Profile Sent. hs1 14:38 CBC with Diff Sent. hs1 14:38 Inserted saline lock: 20 gauge in right antecubital area and blood collected. hs1 14:42 EKG done. (by ED staff). Reviewed by Dejuan Ryan MD. ct3 14:46 Accompanied by Caregiver, Patient has correct armband on for positive identification. ct3 Placed in gown. Bed in low position. Call light in reach. Side rails up X2. security vehicle patrol officer on. Pulse ox on. NIBP on. 14:47 Patient visited by Karen West PCA. ct3 15:01 Chest, 2 View (pa\E\lat) Returned. EDMS 15:17 Patient visited by Elen Martinez RN. hs1 15:52 Chest, 2 View (pa\E\lat) Returned. EDMS 16:13 Patient visited by Elen Martinez RN. hs1 16:32 The patient / caregiver is instructed regarding the plan of care and ED course. hs1 16:37 Sridhar Guillen is Referral Physician. pc 16:44 CT Chest Without Contrast Returned. EDMS 16:58 Discontinued IV lock intact, bleeding controlled, pressure dressing applied, No hs1 redness/swelling at site. No procedures done that require assistance. 17:31 [facility] [place] [facility] Payment Agreement was scanned into [employer] and attached to record. gb 21:17 EKG-ADULT Returned. EDMS 12/02 09:57 T-Sheet-- Draft Copy was scanned into [employer] and attached to record. gb Administered Medications: 12/01 16:28 Drug: Ventolin 2 puffs [Ventolin HFA 90 mcg/actuation aerosol inhaler (2 puffs)] Route: rs5 Inhalation; RT: 16:28 Initial MDI Given. Spacer used Number of puffs given: 2. rs5 Order Results: Lab Order: CBC with Diff; SPEC'M 12/01/16 14:35 Test: WHITE BLOOD COUNT; Value: 6.9; Range: 4.0-10.0; Units: K/mm3; Status: F Test: RED BLOOD COUNT; Value: 3.54; Range: 4.30-6.10; Abnormal: Below low normal; Units: M/mm3; Status: F Test: HEMOGLOBIN; Value: 10.8; Range: 14.0-18.0; Abnormal: Below low normal; Units: g/dl; Status: F Test: HEMATOCRIT; Value: 32.0; Range: 42.0-52.0; Abnormal: Below low normal; Units: %; Status: F Test: MEAN CORPUSCULAR VOLUME; Value: 90.4; Range: 80.0-96.0; Units: fl; Status: F Test: MEAN CORPUSCULAR HEMOGLOBIN; Value: 30.6; Range: 27.0-33.0; Units: pg; Status: F Test: MEAN CORPUSCULAR HGB CONC; Value: 33.9; Range: 32.0-36.5; Units: g/dl; Status: F Test: RED CELL DISTRIBUTION WIDTH; Value: 12.5; Range: 11.5-14.5; Units: %; Status: F Test: PLATELET COUNT, AUTOMATED; Value: 201; Range: 150-450; Units: k/mm3; Status: F Test: NEUTROPHILS %; Value: 73.0; Range: 36.0-66.0; Abnormal: Above high normal; Units: %; Status: F Test: LYMPH %; Value: 16.1; Range: 24.0-44.0; Abnormal: Below low normal; Units: %; Status: F Test: MONO %; Value: 5.5; Range: 0.0-5.0; Abnormal: Above high normal; Units: %; Status: F Test: EOS %; Value: 4.0; Range: 0.0-3.0; Abnormal: Above high normal; Units: %; Status: F Test: BASO %; Value: 0.6; Range: 0.0-1.0; Units: %; Status: F Test: LARGE UNSTAINED CELL %; Value: 0.9; Range: 0.0-4.0; Units: %; Status: F Test: NEUTROPHILS #; Value: 5.0; Range: 1.8-7.7; Units: K/mm3; Status: F Test: LYMPH #; Value: 1.1; Range: 1.5-4.5; Abnormal: Below low normal; Units: K/mm3; Status: F Test: MONO #; Value: 0.4; Range: 0.0-0.8; Units: K/mm3; Status: F Test: EOS #; Value: 0.3; Range: 0.0-0.50; Units: K/mm3; Status: F Test: BASO #; Value: 0.0; Range: 0.0-0.2; Units: K/mm3; Status: F Test: LARGE UNSTAINED CELL #; Value: 0.1; Range: 0.0-0.4; Units: K/mm3; Status: F Lab Order: MED Profile; SPEC12/01/16 14:35 Test: GLUCOSE, FASTING; Value: 123; Range: 83-110; Abnormal: Above high normal; Units: MG/DL; Status: F Test: BLOOD UREA NITROGEN; Value: 40; Range: 7-18; Abnormal: Above high normal; Units: MG/DL; Status: F Test: CREATININE FOR GFR; Value: 1.54; Range: 0.70-1.30; Abnormal: Above high normal; Units: MG/DL; Status: F Test: GLOMERULAR FILTRATION RATE; Value: 46.2; Range: >35; Status: F Test: SODIUM LEVEL; Value: 144; Range: 136-145; Units: MEQ/L; Status: F Test: POTASSIUM SERUM; Value: 4.1; Range: 3.5-5.1; Units: MEQ/L; Status: F Test: CHLORIDE LEVEL; Value: 106; Range: 98-107; Units: MEQ/L; Status: F Test: CARBON DIOXIDE LEVEL; Value: 32; Range: 21-32; Units: MEQ/L; Status: F Test: ANION GAP; Value: 6; Range: 8-16; Abnormal: Below low normal; Units: MEQ/L; Status: F Test: CALCIUM LEVEL; Value: 9.1; Range: 8.8-10.2; Units: MG/DL; Status: F Test Note: ; Units are mL/min/1.73 m2 Chronic Kidney Disease Staging per NKF: Stage I & II GFR >=60 Normal to Mildly Decreased Stage III GFR 30-59 Moderately Decreased Stage IV GFR 15-29 Severely Decreased Stage V GFR <15 Very Little GFR Left ESRD GFR <15 on CLIN TECH Lab Order: BNP; SPEC'12/01/16 14:35 Test: BRAIN NATRIURETIC PEPTIDE; Value: 67.7; Range: <100; Units: PG/ML; Status: F Lab Order: CIP; SPEC12/01/16 14:35 Test: CPK CREATINE PHOSPHOKINASE; Value: 34; Range: 39-308; Abnormal: Below low normal; Units: U/L; Status: F Test: CK-MB VALUE MASS; Value: 1.0; Range: 0.0-3.6; Units: NG/ML; Status: F Test: MB/CK RELATIVE INDEX; Value: 2.94; Range: < OR =4; Status: F Test Note: ; DIAGNOSIS CRITERIA MMB ng/ml Relative Index (RI) NON-AMI < or = 5 N/A DOTY ZONE > 5 < or = 4 AMI > 5 > 4 Lab Order: Troponin; SPEC'M 12/01/16 14:35 Test: TROPONIN I; Value: 0.03; Range: < 0.10; Units: NG/ML; Status: F Test Note: ; Troponin I Reference Interval for [place] LOCI: 99th Percentile= 0.00-0.045 ng/ml Risk Stratification: <= 0.10 ng/ml Decreased Risk for Adverse Clinical Events. 0.10-1.50 ng/ml Increased Risk for Adverse Clinical Events. Evaluation of additional criterion and/or repeat testing in 2-6 hours is suggested to rule out myocardial damage. >= 1.50 ng/ml Indicative of Myocardial Injury. Radiology Order: Chest, 2 View (pa\E\lat) Test: Chest, 2 View (pa\E\lat) REASON FOR EXAMINATION: Cough; CHEST X-RAY: Two views.; ; HISTORY: Cough.; ; FINDINGS: AP and lateral views of the chest show the clear well inflated lungs; and sharp pleural angles. Cardiomediastinal silhouette is remarkable only for; median sternotomy wires and surgical clips. There are degenerative changes in; the thoracic spine. Pulmonary vasculature is not increased.; ; IMPRESSION: Prior sternotomy. No acute disease.; ; ; Signed by; Amanuel Lewis MD 12/01/2016 03:01 P; Radiology Order: EKG-ADULT Test: EKG-ADULT REASON FOR EXAMINATION: Shortness of Breath; Stationary ECG Study; [facility] - ED; ; Test Date: 2016-12-01; Pat Name: ASA SURESH Department:; Room: -; Gender: M [place]: ct; : 1935 Requested By: Dejuan Guaman; Order Number: [id number] Reading MD: Emily Paige; Measurements; Intervals [place]; Rate: 70 P: 83; OR: 224 QRS: 19; QRSD: 84 T: 75; QT: 384; QTc: 416; Interpretive Statements; SINUS RHYTHM WITH FIRST DEGREE AV BLOCK; SEPTAL MYOCARDIAL INFARCTION, OF INDETERMINATE AGE; NSTTW ABNORMALITY; NO PRIOR FOR COMPARISON; Electronically Signed On 12-01-2016 20:28:08 EST by Emily Paige; Radiology Order: CT Chest Without Contrast Test: CT Chest Without Contrast REASON FOR EXAMINATION: former smoker, persistent cough; CT of the chest without IV contrast:; ; Comparison is the plain film PA and lateral study performed earlier today.; ; There are no comparison chest CTs.; ; There are no lung masses or nodules. There are no infiltrates or effusions.; ; There is no mediastinal or axillary lymphadenopathy. In the absence of IV; contrast the study is insensitive for hilar adenopathy.; ; The thoracic aorta is unremarkable. There is occasional calcified atheroma.; ; Cardiac size is normal. There is no pericardial effusion.; ; There are for a round low density lesions in the medial lateral segments of the; hepatic left lobe, unchanged in size shape or appearance from the abdomen CT of; 04/30/2014, likely hepatic cysts.; ; The right lobe is unremarkable. The gallbladder, pancreas, spleen, adrenals and; visualized renal upper poles are unremarkable.; ; Impression:; ; Negative CT scan of the chest. There are several low density lesions in the left; lobe of the liver, unchanged, compatible with hepatic cysts.; ; ; Signed by; Richard Talbert MD 12/01/2016 03:55 P; Outcome: 16:37 Discharge ordered by Provider. pc 16:58 Discharge Assessment: Patient awake, alert and oriented x 3. No cognitive and/or hs1 functional deficits noted. Patient verbalized understanding of disposition instructions. patient administered narcotics - no. The following High Risk Discharge criteria are identified: None. Discharged to home ambulatory. Condition: good. No special radiology studies were completed. Property sent home with patient. 16:58 Patient left the ED. hs1 Signatures: Dispatcher Med[employer] EDMS Dejuan Ryan MD MD pc Barnhardt, Gloria, Ladonna GordonRN RN kr3 Sanford Harrington, HISTOTECHNICIAN HISTOTECHNICIAN dd6 Elen Martinez, RN RN hs1 Karen West, HISTOTECHNICIAN HISTOTECHNICIAN ct3 Cuong Lara,RT RT rs5 Rubina Wynn,RN RN ead Chart Complete MTDD
--- NOTE | 2016-12-03 17:59 | EDDOCDS ---
Physician Documentation [facility] Name: Dom Aldrich Age: 81 yrs Sex: Male : 1935 Arrival Date: 12/01/2016 Time: 12:36 Bed 18 Private MD: Sridhar Guillen Disposition: 12/01 16:13 Critical Care: Critical care not applicable. pc Disposition: 12/01/16 16:37 Discharged to Home/Self Care. Impression: Cough - post-infectious . - Condition is Stable. - Discharge Instructions: Cough, Adult. - Prescriptions for Albuterol Sulfate 90 mcg/actuation Inhalation HFA Aerosol Inhaler - inhale 2 puff by INHALATION route every 4 hours As needed; 1 Inhaler. - Medication Reconciliation, Local Pharmacy Hours form. - Follow up: Sridhar Guillen; When: Call to arrange an appointment; Reason: Recheck today's complaints, Continuance of care. - Problem is an ongoing problem. - Symptoms have improved. HPI: 14:32 This 81 yrs old Male presents to ER via Walkin/Carried/Asstd with complaints pc of Chest Congestion, Cough. 14:32 The history is obtained from the patient, the patient's family/friend. He has had a pc nonproductive cough for 2+ weeks. He denies having any fevers or chills, chest pain, orthopnea or PND. He was seen at an urgent care last week, when his daughter first knew of his symptoms, and was started on ABX for bronchitis. He has not been eating very well, is less energetic than usual and she does not feel he is improving. Historical: - Allergies: no known allergies; - Home Meds: 1. cefuroxime axetil 500 mg Oral tab 2 times per day 2. Tylenol PM 25-500 mg-mg/mL Oral soln daily 3. irbesartan 300 mg oral tab once daily 4. Janumet 50-500 mg oral tab 5. aspirin 81 mg Oral tab once daily 6. Bystolic 10 mg oral tab once daily 7. Fish Oil Oral daily 8. multivitamin Oral tab daily 9. hydrochlorothiazide 25 mg Oral tab once daily 10. simvastatin 20 mg Oral tab once daily 11. amlodipine 2.5 mg Oral tab once daily 12. doxazosin 4 mg oral tab once daily - PMHx: Hypercholesterolemia; Hypertension; Diabetes - NIDDM: controlled; - PSHx: open heart; - The history from nurses notes was reviewed: and I agree with what is documented. - Social history: Smoking status: Patient states former smoker of tobacco. No barriers to communication noted, The patient speaks fluent Luxembourgish, Speaks appropriately for age. - : The pt / caregiver states he / she is not on anticoagulants. Home medication list is obtained from the patient, family members. - Hospitalizations: : No recent hospitalization is reported. - Exposure Risk Screening:: None identified. - Immunization history:: All immunizations up-to-date. - Family history: Not pertinent. - Social history:: the patient is a former smoker, the patient does not drink alcohol. ROS: 14:32 All systems are negative except as listed. pc Exam: 14:32 General Appearance: no acute distress, alert, asleep, lying flat on his right side. pc 14:32 EENT: normal eye inspection, ears, nose and throat normal, pharynx normal, mucous membranes moist 14:32 Neck: The exam reveals no acute abnormalities. ROM is normal and painless. No nuchal rigidity is noted.. 14:32 Respiratory: no respiratory distress, normal breath sounds, chest non-tender. 14:32 CVS: regular pulse rate, regular rhythm, normal S1 and S2, no murmurs, strong peripheral pulses, normal capillary refill. 14:32 Abdomen: soft, non-tender, no organomegaly, normal bowel sounds, no masses appreciated, no hernias palpated with/without gravity or Valsalva 14:32 Back: normal inspection. 14:32 Skin: skin color is normal, warm, dry. 14:32 Extremities: The extremities have a grossly normal appearance, are non-tender, without acute ROM abnormalities, no pedal edema. 14:32 Neuro: oriented x 3, cranial nerves normal as tested, no motor deficits, no sensory deficits. 14:32 Psych: normal mood. Vital Signs: 12:38 BP 101 / 53; Pulse 85; Resp 18 S; Temp 97.3(O); Pulse Ox 99% on R/A; Weight 88 kg / dd6 194.01 lbs (R); Height 5 ft. 8 in. (172.72 cm) (R); 14:58 Pulse 66 MON; Pulse Ox 94% ; hs1 14:58 BP 139 / 63 (auto/); hs1 15:13 Pulse 66 MON; Pulse Ox 93% ; hs1 15:13 BP 134 / 63 (auto/); hs1 15:27 Pulse 64 MON; Pulse Ox 95% ; hs1 15:28 BP 158 / 67 (auto/); hs1 15:43 Pulse 66 MON; Pulse Ox 97% ; hs1 15:43 BP 150 / 67 (auto/); hs1 15:58 Pulse 68 MON; Pulse Ox 96% ; hs1 15:58 BP 178 / 72 (auto/); hs1 16:13 BP 172 / 74 (auto/); hs1 16:13 Pulse 68 MON; Pulse Ox 95% ; hs1 16:27 Pulse 70 MON; Pulse Ox 98% ; hs1 16:28 BP 167 / 70 (auto/); hs1 16:57 BP 127 / 61; Pulse 77; Resp 18; Temp 99.1(O); Pulse Ox 98% ; Pain 0/10; hs1 12:38 Body Mass Index 29.50 (88.00 kg, 172.72 cm) dd6 MDM: 13:25 Chest, 2 View (pa\E\lat) Ordered. EDMS 14:28 IV Saline Lock ordered. pc 14:28 [employer]/Pulse Ox/q 30 min VS ordered. pc 14:29 CBC with Diff Ordered. EDMS 14:29 MED Profile Ordered. EDMS 14:29 BNP Ordered. EDMS 14:29 CIP Ordered. EDMS 14:29 Troponin Ordered. EDMS 14:29 ECG WITH READING ER PHYS+CARDIAG ordered. EDMS 14:32 Differential Diagnosis: persistent cough without fever. Plan: labs, EKG, CXR. Test pc interpretation: X-RAY - interpreted by Radiologist and personally reviewed, 2 view chest, no acute disease. 14:47 Test interpretation: EKG. pc 14:57 CBC with Diff Reviewed. pc 15:01 Chest, 2 View (pa\E\lat) Reviewed. pc 15:07 MED Profile Reviewed. pc 15:07 BNP Reviewed. pc 15:07 Troponin Reviewed. pc 15:10 MED Profile Reviewed. pc 15:10 CIP Reviewed. pc 15:10 Troponin Reviewed. pc 15:10 CT Chest Without Contrast Ordered. EDMS 16:13 Data reviewed: old medical records, vital signs, nurses notes, EKG(s), lab test pc results, all radiology studies and available results. Test interpretation: LAB - all labs as ordered have been reviewed, interpreted and considered in the overall management of the clinical presentation; interpreted by Radiologist and personally reviewed, Chest CT; liver densities as on prior studies, else negative. The patient has been re-examined and re-evaluated. The clinical presentation did not require any ED treatment or interventions. Disposition: The historical points, examination findings, and any diagnostic results supporting the provided diagnosis, were discussed with the patient or legal guardian. The need for outpatient follow up with the provider listed on their discharge instructions was discussed. They were encouraged to return to [facility], or the nearest ED, if symptoms worsen/persist, or for any other questions/concerns. 16:14 Ventolin Inhaler 2 puffs Inhalation once; dispense to go: 2 puffs QID prn ordered. pc 16:14 Call Respiratory ordered. pc 16:14 MDI teaching with Spacer ordered. pc 16:19 Call Respiratory complete. hs1 17:02 Financial registration complete. :31 [facility] Payment Agreement was scanned into [employer] and attached to record. 12/02 08:57 T-Sheet-- Draft Copy was scanned into [employer] and attached to record. EC/24 14:47 Rate is 70 beats/min. Rhythm is regular, Normal Sinus Rhythm with 1st degree heart pc block. QRS [place] is Normal. DE interval is prolonged at 224 msec. QRS interval is normal. QT interval is normal. Q waves are Old in lead III. T waves are Inverted in leads V5, V6. No ST changes noted. Clinical impression: Normal Sinus Rhythm, 1st degree heart block, Inferior [place] - age indeterminate, and PRWP. Administered Medications: 16:28 Drug: Ventolin 2 puffs [Ventolin HFA 90 mcg/actuation aerosol inhaler (2 puffs)] Route: rs5 Inhalation; Signatures: Dispatcher [employer] EDMS Dejuan Ryan MD MD pc Barnhardt, Gloria, Reg Reg Elen Martinez RN RN hs1 Rubina Wynn RN RN Cuong Ibrahim RT rs5 The chart was reviewed and I authenticate all verbal orders and agree with the evaluation and treatment provided.Attachments: 17:31 [facility] Payment Agreement 12/02 09:57 T-Sheet-- Draft Copy gb Chart Complete MTDD
== END 2016-12-01 16:58 | disposition home or self-care (01) ==
LOC: M ED 12:36
DX: R05 Cough (principal); E78.00 Pure hypercholesterolemia, unspecified; I10 Essential (primary) hypertension; E11.9 Type 2 diabetes mellitus without complications; Z79.899 Other long term (current) drug therapy; Z79.84 Long term (current) use of oral hypoglycemic drugs; Z79.82 Long term (current) use of aspirin; Z87.891 Personal history of nicotine dependence

== ENCOUNTER → 2016-12-04 | Outpatient (CLI) | payer BC, MEDICARE ==
[~2016-12-04] MED LIST: ISOVUE-M 300 61% 15ML VIAL (Q9967) As Ordered ONE; LIDOCAINE 1% SDV INJ 30 ML VIAL As Ordered ONE; methylPREDNISolone SUSP 40 MG/ML (DEPO-medrol) VIAL (J1030) As Ordered ONE
--- NOTE | 2016-12-04 16:52 | REP ---
Partial lumbar spine series: Four views. History: Lumbar epidural for pain. 22 seconds of fluoroscopy time is reported. Findings: A sequence of four fluoroscopically obtained intraprocedural spot radiographs of the lumbar spine document needle position and contrast injection associated with lumbar epidural injection procedure. Signed by Amanuel Lewis MD 12/04/2016 04:59 P
--- NOTE | 2016-12-13 23:39 | ECWPNPC ---
PATIENT NAME: ASA SURESH V : 1935 GENDER: MALE VISIT DATE: 12/04/2016 DISCHARGE DATE: 12/04/16 1612 VISIT LOCKED DATE TIME: PHYSICIAN: DIMA LAI RESOURCE: DIMA LAI REASON FOR APPOINTMENT 1. CAUDAL EPIDURAL HISTORY OF PRESENT ILLNESS HISTORY OF PRESENT ILLNESS: PAIN THE PATIENT DESCRIBES THE PAIN... FALL RISK SCREENING: SCREENING :NO FALLS IN THE PAST YEAR CURRENT MEDICATIONS TAKING JANUMET 50-500 MG TABLET 1 TABLET WITH MEALS ORALLY TWICE A DAY, NOTES: 12/03 8AM TAKING SIMVASTATIN 20 MG TABLET 1 TABLET IN THE EVENING ORALLY ONCE A DAY, NOTES: 12/03 10PM TAKING MULTIVITAMINS CAPSULE 1 TABLET ORALLY ONCE A DAY, NOTES: 12/04 7AM TAKING FISH OIL 1000 MG CAPSULE 1 CAPSULE ORALLY ONCE A DAY, NOTES: 12/04 7AM TAKING IRBESARTAN 300 MG TABLET 1 TABLET ORALLY ONCE A DAY, NOTES: 12/04 7AM TAKING ASPIRIN 81 MG 1 TAB ORAL DAILY, NOTES: 12/04 7AM TAKING BYSTOLIC 20 MG TABLET 1 TABLET ORALLY ONCE A DAY, NOTES: 12/04 7AM TAKING HYDROCHLOROTHIAZIDE 12.5 MG TABLET 1 TABLET ORALLY ONCE A DAY (DOSE NOT CONFIRMED), NOTES: 12/04 7AM TAKING AMLODIPINE BESYLATE 5 MG TABLET 1 TABLET ORALLY ONCE A DAY (DOSE NOT CONFIRMED), NOTES: 12/04 AM TAKING DOXAZOSIN MESYLATE 1 MG TABLET 1 TABLET ORALLY ONCE A DAY (DOSE NOT CONFIRMED), NOTES: 12/03 7PM NOT-TAKING CARVDILOL 3.125MG TABLET DIRECTED ORAL NOT-TAKING VITAMIN D-[address] 2000 UNIT TABLET 1 TABLET ORALLY ONCE A DAY NOT-TAKING FLOMAX 0.4 MG CAPSULE 1 CAPSULE 30 MINUTES AFTER THE SAME MEAL EACH DAY ORALLY ONCE A DAY MEDICATION LIST REVIEWED AND RECONCILED WITH THE PATIENT PAST MEDICAL HISTORY HYPERLIPIDEMIA KIDNEY STONE HTN DM, 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 SOCIAL HISTORY GENERAL: TOBACCO USE ARE YOU A:NONSMOKER LEARNING BARRIERS / SPECIAL NEEDS ORIENTED TO PLAN OF CARE: PATIENT, PAIN MANAGEMENT PATIENT, ORIENTED TO PLAN OF CARE: PATIENT, PAIN MANAGEMENT PATIENT. NEW PATIENT PAIN DIARY TODAY'S VISITNOTES FROM 0-10, WHAT LEVEL IS YOUR PAIN TODAY?0 PAIN CLINIC PFS, CLERGY, PUBLIC HEALTH REFERRALS PFS REFERRAL NEEDED?NO CLERGY REFERRAL NEEDED?NO PUBLIC HEALTH REFERRAL NEEDED?NO WAS THE PROVIDER NOTIFIED OF ANY PERTINENT INFO?NO PFS REFERRAL NEEDED?NO CLERGY REFERRAL NEEDED?NO PUBLIC HEALTH REFERRAL NEEDED?NO WAS THE PROVIDER NOTIFIED OF ANY PERTINENT INFO?NO REVIEW OF SYSTEMS CONSTITUTIONAL: ANY CHANGE IN YOUR MEDICAL CONDITION? NO . CHILLS NO . FEVER NO . INFECTION: DO YOU HAVE NEW INFECTIONS? NO . DO YOU HAVE HISTORY OF MRSA? NO . MUSCULOSKELETAL: ANY NEW PATTERNS OF PAIN OR NUMBNESS? NO . GASTROENTEROLOGY: ANY NEW CHANGE IN BOWEL CONTROL? NO . GENITOURINARY: ANY NEW CHANGE IN BLADDER CONTROL? NO . IS THERE A CHANCE YOU COULD BE ? NO . HEMATOLOGY/LYMPH: DO YOU TAKE ANY BLOOD THINNERS? (FOR EXAMPLE- COUMADIN, PLAVIX, AGGRENOX, PLATEL, PRADAXA, OR XARELTO) YES, ASA AT 12/04 7AM . WHEN WAS YOUR LAST DOSE? DATE: TIME: . NEUROLOGY: HAVE YOU FALLEN IN THE PAST 6 MONTHS? NO . ANY NEW EXTREMITY NUMBNESS OR WEAKNESS? NO . CARDIOLOGY: DO YOU HAVE A PACEMAKER OR DEFIBRILLATOR? NO . RESPIRATORY: HAVE YOU BEEN SICK IN THE PAST WEEK? NO . FEVER NO . FLU LIKE SYMPTOMS? NO . COUGH NO . INTEGUMENTARY: DO YOU HAVE ANY RASHES OR OPEN SORES? NO . ALLERGIC/IMMUNO: ARE YOU ALLERGIC TO SHELLFISH OR IV DYE? NO . ANY NEW ALLERGIES? NO . PSYCHIATRIC: DO YOU HAVE THOUGHTS OF HURTING YOURSELF OR SOMEONE ELSE? NO . ARE YOU ABUSED, NEGLECTED, OR IN AN UNSAFE ENVIRONMENT? NO . ENDOCRINOLOGY: ARE YOU DIABETIC? YES, MANAGED WITH MEDICATIONS . OTHER: DO YOU NEED ANY PRESCRIPTIONS? NO . IF YES, PLEASE LIST: ____ . ANY NEW PROBLEMS WITH YOUR MEDICATIONS? NO . WHEN DID YOU LAST EAT? 12/04 7:30AM . WHEN DID YOU LAST DRINK? 12 NOON . WHAT DID YOU LAST DRINK? WATER . NAME OF PERSON DRIVING YOU HOME? DAUGHTER IN LAW, MCKENZIE . DO YOU HAVE ANY OTHER QUESTIONS OR CONCERNS NO . REVIEWED BY: PROVIDER: . VITAL SIGNS WT 194 LBS, HT 5'8", BMI 29.49 INDEX, BP 157/70 MM HG, HR 78 /MIN, RR 18 /MIN, TEMP 96.0 F, OXYGEN SAT % 97, SAFE IN ENV? (Y/N) Y, NA INITIALS TL 1416, REVIEWED BY: DS. ASSESSMENTS INTERVERTEBRAL DISC DISORDERS WITH RADICULOPATHY, LUMBOSACRAL REGION - M51.17 (PRIMARY) PROCEDURES PRE PROCEDURE DIAGNOSIS LUMBOSACRAL RADICULOPATHY, LUMBOSACRAL DISC DISORDER WITH RADICULOPATHY POST PROCEDURE DIAGNOSIS LUMBOSACRAL RADICULOPATHY , LUMBOSACRAL DISC DISORDER WITH RADICULOPATHY PROCEDURE L5-S1 EPIDURAL STEROID INJECTION UNDER FLUOROSCOPIC GUIDANCE SURGEON DR. DIMA LAI ALL SOURCE COLLECTION MANAGER NONE ANESTHESIA LOCAL PRE PROCEDURE NOTE THE PATIENT HAS A HISTORY OF CHRONIC LOW BACK PAIN. I EVALUATE THE PATIENT AND REVIEWED THE CHART. I WENT OVER THE RISKS, ALTERNATIVES, AND BENEFITS ASSOCIATED WITH THIS PROCEDURE. THE PATIENT WOULD LIKE TO PROCEED AND GIVE CONSENT TO PERFORMED THE PROCEDURE. THE PATIENT DENIES UNEXPLAINABLE WEIGHT LOSS, FEVER, CHILLS, OR NEW CHANGES IN URINARY OR BOWEL CONTROL. DESCRIPTION OF PROCEDURE THE PATIENT WAS BROUGHT TO THE PROCEDURE ROOM AND PLACED IN THE PRONE POSITION. THE LUMBOSACRAL AREA WAS CLEANED WITH BETADINE SOLUTION AND DRAPED ASEPTICALLY. THE PROCEDURE WAS DONE UNDER STERILE CONDITIONS. I CHECKED LATERALITY AND THE LEVEL WHERE THE PROCEDURE WAS GOING TO BE PERFORMED WITH THE PATIENT AND THE SUPPORTING STAFF AT THE MOMENT OF THE TIME OUT IN THE PROCEDURE ROOM. UNDER FLUOROSCOPIC GUIDANCE, THE TARGET POINT WAS SELECTED AT THE INTERLAMINAR LEVEL OF L5-S1. LIDOCAINE WAS USED TO NUMB THE SKIN AND THE SUBCUTANEOUS TISSUE BELOW IT. EPIDURAL TUOHY NEEDLE, 17-GAUGE, WAS ADVANCED UNDER FLUOROSCOPIC GUIDANCE AND FOLLOWING PATIENT FEEDBACK UNTIL THE EPIDURAL SPACE WAS REACHED, 7 CM DEEP INTO THE SKIN BY THE LOSS OF RESISTANCE TECHNIQUE. ISOVUE M DYE 30%, 0.25 ML, WAS INJECTED SHOWING ADEQUATE SPREAD OF THE DYE. THEN, A SOLUTION OF 3 ML OF NORMAL SALINE WITH DEPO-MEDROL 60 MG WAS INJECTED SLOWLY FOLLOWING PATIENT FEEDBACK. THERE WAS NO EVIDENCE OF BLOOD, PARESTHESIA OR CEREBROSPINAL FLUID DURING THE PROCEDURE. THE PATIENT WAS SENT TO THE RECOVERY ROOM. THE PATIENT WAS MOVING THE EXTREMITIES AND DOING WELL. THERE WAS NO COMPLICATION DURING THE PROCEDURE. FLUOROSCOPY TIME WAS 22 SECONDS. POST PROCEDURE NOTE THE PATIENT WILL BE SEEN IN A FOLLOW UP IN THE NEXT FEW WEEKS. INSTRUCTIONS WERE GIVEN, QUESTIONS WERE ANSWERED, AND THE PATIENT EXPRESSED UNDERSTANDING AND AGREES WITH THE PLAN. INSTRUCTIONS WERE GIVEN, QUESTIONS WERE ANSWERED, PATIENT REPORTS UNDERSTANDING AND AGREES WITH THE PLAN. I, DEAN MORALES, DOCUMENTED THE ABOVE INFORMATION ACTING A SCRIBE FOR DR. LAI. I HAVE REVIEWED THE ABOVE DOCUMENT, WRITTEN BY DEAN MORALES SCRIBE AND I VERIFY THAT IT IS ACCURATE. DIAGNOSTIC IMAGING [facility] FLUORO GUIDE SPINE INJECTION (PAIN)[id number] PROCEDURE CODES 62436 LUMBAR/SACRAL W/ IMAGING 6045F RADXPS IN END [id number] PXD FOLLOW UP 3 WEEKS ELECTRONICALLY SIGNED BY DIMA LAI MD ON 12/13/2016 AT 07:52 PM EST DISCLAIMER : THIS IS A VISIT SUMMARY EXTRACTED FROM THE [employer] CHART. IT IS NOT A COPY OF THE [employer] PROGRESS NOTE. MTDD
== END ==
LOC: M PAIN 14:20
PROVIDERS: ATTEND Anesthesiology
DX: G89.29 Other chronic pain (principal); M51.17 Intervertebral disc disorders with radiculopathy, lumbosacral region; E78.5 Hyperlipidemia, unspecified; I10 Essential (primary) hypertension; E11.9 Type 2 diabetes mellitus without complications; I25.2 Old myocardial infarction; M19.90 Unspecified osteoarthritis, unspecified site; Z79.01 Long term (current) use of anticoagulants; Z79.82 Long term (current) use of aspirin
CPT/HCPCS: 62323; J1030; Q9967

== ENCOUNTER → 2016-12-29 | Outpatient (CLI) | payer BC ==
--- NOTE | 2016-12-31 23:40 | ECWPNPC ---
PATIENT NAME: ASA SURESH V : 1935 GENDER: MALE VISIT DATE: 12/29/2016 DISCHARGE DATE: 12/29/16 1125 VISIT LOCKED DATE TIME: PHYSICIAN: HELEN RAI RESOURCE: HELEN RAI REASON FOR APPOINTMENT 1. POST PROCEDURE HISTORY OF PRESENT ILLNESS HISTORY OF PRESENT ILLNESS: PAIN THE PATIENT DESCRIBES THE PAIN... FALL RISK SCREENING: SCREENING :NO FALLS IN THE PAST YEAR TODAY'S VISIT: NOTES: S/P LESB COMPLETED ON 12/04/15. NOTES NO COMPLICATIONS AND PAIN IS CURRENTLY 0/10 IN LOW BACK AND LEGS. GENERAL STRENGTH AND WEAKNESS CONTINUES TO BE AN ISSUE. TO START PT TOMORROW, . CURRENT MEDICATIONS TAKING JANUMET 50-500 MG TABLET 1 TABLET WITH MEALS ORALLY TWICE A DAY TAKING SIMVASTATIN 20 MG TABLET 1 TABLET IN THE EVENING ORALLY ONCE A DAY TAKING MULTIVITAMINS CAPSULE 1 TABLET ORALLY ONCE A DAY TAKING FISH OIL 1000 MG CAPSULE 1 CAPSULE ORALLY ONCE A DAY TAKING IRBESARTAN 300 MG TABLET 1 TABLET ORALLY ONCE A DAY TAKING ASPIRIN 81 MG 1 TAB ORAL DAILY TAKING BYSTOLIC 20 MG TABLET 1 TABLET ORALLY ONCE A DAY TAKING HYDROCHLOROTHIAZIDE 12.5 MG TABLET 1 TABLET ORALLY ONCE A DAY (DOSE NOT CONFIRMED) TAKING DOXAZOSIN MESYLATE 1 MG TABLET 1 TABLET ORALLY ONCE A DAY (DOSE NOT CONFIRMED) NOT-TAKING CARVDILOL 3.125MG TABLET DIRECTED ORAL NOT-TAKING VITAMIN D-[address] 2000 UNIT TABLET 1 TABLET ORALLY ONCE A DAY NOT-TAKING FLOMAX 0.4 MG CAPSULE 1 CAPSULE 30 MINUTES AFTER THE SAME MEAL EACH DAY ORALLY ONCE A DAY DISCONTINUED AMLODIPINE BESYLATE 5 MG TABLET 1 TABLET ORALLY ONCE A DAY (DOSE NOT CONFIRMED) MEDICATION LIST REVIEWED AND RECONCILED WITH THE PATIENT PAST MEDICAL HISTORY HYPERLIPIDEMIA KIDNEY STONE HTN DM, 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 SOCIAL HISTORY GENERAL: TOBACCO USE ARE YOU A:NONSMOKER LEARNING BARRIERS / SPECIAL NEEDS ORIENTED TO PLAN OF CARE: PATIENT, PAIN MANAGEMENT PATIENT, ORIENTED TO PLAN OF CARE: PATIENT, PAIN MANAGEMENT PATIENT. NEW PATIENT PAIN DIARY TODAY'S VISITNOTES FROM 0-10, WHAT LEVEL IS YOUR PAIN TODAY?0 PAIN CLINIC PFS, CLERGY, PUBLIC HEALTH REFERRALS PFS REFERRAL NEEDED?NO CLERGY REFERRAL NEEDED?NO PUBLIC HEALTH REFERRAL NEEDED?NO WAS THE PROVIDER NOTIFIED OF ANY PERTINENT INFO?NO PFS REFERRAL NEEDED?NO CLERGY REFERRAL NEEDED?NO PUBLIC HEALTH REFERRAL NEEDED?NO WAS THE PROVIDER NOTIFIED OF ANY PERTINENT INFO?NO REVIEW OF SYSTEMS CONSTITUTIONAL: ANY CHANGE IN YOUR MEDICAL CONDITION? NO . CHILLS NO . FEVER NO . INFECTION: DO YOU HAVE NEW INFECTIONS? NO . DO YOU HAVE HISTORY OF MRSA? NO . MUSCULOSKELETAL: ANY NEW PATTERNS OF PAIN OR NUMBNESS? NO . GASTROENTEROLOGY: ANY NEW CHANGE IN BOWEL CONTROL? NO . GENITOURINARY: ANY NEW CHANGE IN BLADDER CONTROL? NO . IS THERE A CHANCE YOU COULD BE ? NO . HEMATOLOGY/LYMPH: DO YOU TAKE ANY BLOOD THINNERS? (FOR EXAMPLE- COUMADIN, PLAVIX, AGGRENOX, PLATEL, PRADAXA, OR XARELTO) NO . WHEN WAS YOUR LAST DOSE? DATE: TIME: . NEUROLOGY: HAVE YOU FALLEN IN THE PAST 6 MONTHS? NO . ANY NEW EXTREMITY NUMBNESS OR WEAKNESS? NO . CARDIOLOGY: DO YOU HAVE A PACEMAKER OR DEFIBRILLATOR? NO . RESPIRATORY: HAVE YOU BEEN SICK IN THE PAST WEEK? NO . FEVER NO . FLU LIKE SYMPTOMS? NO . COUGH NO . INTEGUMENTARY: DO YOU HAVE ANY RASHES OR OPEN SORES? NO . ALLERGIC/IMMUNO: ARE YOU ALLERGIC TO SHELLFISH OR IV DYE? NO . ANY NEW ALLERGIES? NO . PSYCHIATRIC: DO YOU HAVE THOUGHTS OF HURTING YOURSELF OR SOMEONE ELSE? NO . ARE YOU ABUSED, NEGLECTED, OR IN AN UNSAFE ENVIRONMENT? NO . ENDOCRINOLOGY: ARE YOU DIABETIC? NO . OTHER: DO YOU NEED ANY PRESCRIPTIONS? NO . IF YES, PLEASE LIST: ____ . ANY NEW PROBLEMS WITH YOUR MEDICATIONS? NO . WHEN DID YOU LAST EAT? ____ . WHEN DID YOU LAST DRINK? ____ . WHAT DID YOU LAST DRINK? ____ . NAME OF PERSON DRIVING YOU HOME? ____ . DO YOU HAVE ANY OTHER QUESTIONS OR CONCERNS GOOD RELIEF FROM CAUDAL EPIDURAL. SOME DISCOMFORT AFTER BUT NOW PAIN IS 0. . REVIEWED BY: PROVIDER: HELEN WASHINGTONP . VITAL SIGNS WT 194 LBS, HT 5'8", BMI 29.49 INDEX, BP 94/52 MM HG, HR 82 /MIN, RR 16 /MIN, TEMP 96.4 F, OXYGEN SAT % 94%, NA INITIALS SC 10:41, REVIEWED BY: ADPATIENT AWARE B/P IS SLIGHTLY LOW, HE HAS BEEN FEELING LIGHT HEADED. EXAMINATION GENERAL EXAMINATION: PSYCHALERT , ORIENTED X 3 , APPROPRIATE MOOD AND AFFECT . LUNGS:CLEAR TO AUSCULTATION BILATERALLY. HEART:HEART RATE REGULAR. MUSCULOSKELETAL:QUADRICEPS WEAKNESS.NO PAIN WITH PALPATION OVER LUMBAR SPINOUS PROCESSES OR ACROSS THE SACRUM. DIFFICULTY RISING TO A STANDING POSITION. POSTURE IS STOOPED. GAIT IS SOMEWHAT SHUFFLING. WALKER USED FOR BALANCE. PROPULSION IS NOTED WITH AMBULATION.. ASSESSMENTS LOW BACK PAIN - M54.5 (PRIMARY) OTHER CHRONIC PAIN - G89.29 WEAKNESS OF BOTH LOWER EXTREMITIES - R29.898 LUMBAR SPINAL STENOSIS - M48.06 TREATMENT LOW BACK PAIN NOTES: CONTINUE PHYSICAL THERAPY . CONTACT CARDIOLOGY REGARDING LOW BLOOD PRESSURES., FALLS CARE PLAN: 1. RECOMMEND REMOVING ALL THROW RUGS. 2. RECOMMEND NIGHT LIGHTS 3. RECOMMEND WEARING RUBBER SOLED SHOES AND TO NOT GO BAREFOOT. 4.. ADVISED TO CHANGE POSITION SLOWLY FROM SUPINE TO STANDING TO AVOID DIZZINESS. 5. ADVISED TO USE ASSISTIVE DEVICE SUCH CANE OR WALKER 6. USE [employer] OR KEEP PORTABLE PHONE READILY AVAILABLE. PROCEDURE CODES FA211 ESTABILISHED PATIENT [facility] FACILITY CHARGE G8783 BP SCR PRFRM RCMDD DEFIND SCR INTVL G8730 PAIN ASSESS POS TOOL F/U PLAN DOC 3016F PT SCRND UNHLTHY [place] USE 1124F ACP DISCUSS-NO DSCNMKR DOCD 1036F TOBACCO NON-USER 0518F FALL PLAN OF CARE DOCD G8427 DOC MEDS VERIFIED W/PT OR RE G8420 BMI<30 AND >=22 CALC & DOCU 3288F FALL RISK ASSESSMENT DOCD DISPOSITION & COMMUNICATION FOLLOW UP 2 MONTHS ELECTRONICALLY SIGNED BY LOS VELASCO ON 12/31/2016 AT 01:08 PM EST DISCLAIMER : THIS IS A VISIT SUMMARY EXTRACTED FROM THE [employer] CHART. IT IS NOT A COPY OF THE [employer] PROGRESS NOTE. QUIANAD
== END ==
LOC: M PAIN 10:20
PROVIDERS: ATTEND Nurse Practitioner Family
DX: M54.5 Low back pain (principal); G89.29 Other chronic pain; R29.898 Other symptoms and signs involving the musculoskeletal system; M48.06 Spinal stenosis, lumbar region; M51.17 Intervertebral disc disorders with radiculopathy, lumbosacral region; Z79.82 Long term (current) use of aspirin; Z79.899 Other long term (current) drug therapy; E11.9 Type 2 diabetes mellitus without complications; I10 Essential (primary) hypertension

== ENCOUNTER 2018-04-18 15:40 | Inpatient (IN) | payer BC, MEDICARE ==
[2018-04-18 17:08] LABS: BASO % 0.1 % (0.0-1.0); HEMATOCRIT 38.8 % (42.0-52.0); HEMOGLOBIN 13.1 g/dl (13.5-17.5); IMMATURE GRANULOCYTE % 0.4 % (0-3.0); LYMPH % 5.2 % (24.0-44.0); MEAN CORPUSCULAR HEMOGLOBIN 30.4 pg (27.0-33.0); MEAN CORPUSCULAR HGB CONC 33.8 g/dl (32.0-36.5); MONO # 1.7 10^3/uL (0.0-0.8); MONO % 8.6 % (0.0-5.0); NEUTROPHILS # 16.5 10^3/uL (1.8-7.7); NEUTROPHILS % 85.7 % (36.0-66.0); PLATELET COUNT, AUTOMATED 269 10^3/uL (150-450); RED BLOOD COUNT 4.31 10^6/uL (4.30-6.10); RED CELL DISTRIBUTION WIDTH 13.2 % (11.5-14.5); WHITE BLOOD COUNT 19.3 10^3/uL (4.0-10.0)
[2018-04-18 17:14] LABS: AMORPHOUS SEDIMENT RFX SMALL (NEGATIVE); KETONE, URINE AUTO RFX NEGATIVE (NEGATIVE); LEUKOCYTE ESTERASE UR AUTO RFX NEGATIVE (NEGATIVE); NITRITE, URINE AUTO RFX NEGATIVE (NEGATIVE); RBC, URINE AUTO RFX 9 /HPF (0-3); SPECIFIC GRAVITY UR AUTO RFX 1.016 (1.002-1.035); SQUAM EPITHELIAL CELL UR AURFX 0 /HPF (0-6); WBC, URINE AUTO RFX 1 /HPF (0-3)
[2018-04-18 17:31] LABS: AMMONIA 10 uMOL/L (<32)
[2018-04-18 17:34] LABS: ALKALINE PHOSPHATASE 82 U/L (45-117); ALT/SGPT 36 U/L (12-78); AST/SGOT 78 U/L (7-37); BILIRUBIN,DIRECT 0.2 MG/DL (0.0-0.2); BILIRUBIN,TOTAL 0.7 MG/DL (0.2-1.0); BLOOD UREA NITROGEN 103 MG/DL (7-18); CALCIUM LEVEL 8.9 MG/DL (8.8-10.2); CARBON DIOXIDE LEVEL 29 MEQ/L (21-32); CHLORIDE LEVEL 104 MEQ/L (98-107); CREATININE FOR GFR 2.92 MG/DL (0.70-1.30); GLUCOSE, FASTING 178 MG/DL (70-100); POTASSIUM SERUM 3.7 MEQ/L (3.5-5.1); SODIUM LEVEL 142 MEQ/L (136-145); TOTAL PROTEIN 6.5 GM/DL (6.4-8.2); TROPONIN I 0.11 NG/ML (< 0.10)
[2018-04-18 17:43] LABS: CK-MB VALUE MASS 23.3 NG/ML (<3.6); CPK CREATINE PHOSPHOKINASE 2280 U/L (39-308); MB/CK RELATIVE INDEX 1.02 (< OR =4); THYROID STIMULATING HORMONE 0.984 uIU/ML (0.358-3.740)
[2018-04-18 18:02] LABS: ALBUMIN/GLOBULIN RATIO 0.86 (1.00-1.93); ANION GAP 9 MEQ/L (8-16)
[2018-04-18] MEDS: NS 1,000 ML IV ×2 (19:00→22:00)
[2018-04-18] MEDS: TETANUS/DIPHTHERIA TOX ADSORB ADULT 0.5ML SYR/VIAL (90714) IM (19:51)
[2018-04-18] MEDS ORDERED: DEXTROSE 50% 50 ML SYRINGE IV (22:15)
[2018-04-18] MEDS ORDERED: ONDANSETRON 4MG/2ML VIAL (J2405) IV (22:15)
[2018-04-18] MEDS ORDERED: GLUCAGON FOR INJ 1 MG VIAL (J1610) SC (22:15)
[2018-04-18] MEDS ORDERED: GLUCOSE 4 GM CHEW TABLET PO (22:15)
[2018-04-18 23:20] LABS: BEDSIDE GLUCOSE 172 MG/DL (83-110)
[2018-04-18] MEDS: HumaLOG INSULIN (NovoLOG) PER UNIT SC (23:21)
[2018-04-19 05:20] LABS: BASO % 0.1 % (0.0-1.0); HEMATOCRIT 32.3 % (42.0-52.0); HEMOGLOBIN 11.2 g/dl (13.5-17.5); IMMATURE GRANULOCYTE % 0.4 % (0-3.0); LYMPH # 0.8 10^3/uL (1.5-4.5); MEAN CORPUSCULAR HEMOGLOBIN 30.9 pg (27.0-33.0); MEAN CORPUSCULAR HGB CONC 34.7 g/dl (32.0-36.5); MONO # 1.4 10^3/uL (0.0-0.8); MONO % 10.1 % (0.0-5.0); NEUTROPHILS # 11.5 10^3/uL (1.8-7.7); NEUTROPHILS % 83.4 % (36.0-66.0); PLATELET COUNT, AUTOMATED 198 10^3/uL (150-450); RED BLOOD COUNT 3.63 10^6/uL (4.30-6.10); RED CELL DISTRIBUTION WIDTH 13.3 % (11.5-14.5); WHITE BLOOD COUNT 13.8 10^3/uL (4.0-10.0)
[2018-04-19 05:27] LABS: ANION GAP 11 MEQ/L (8-16); BLOOD UREA NITROGEN 118 MG/DL (7-18); CARBON DIOXIDE LEVEL 27 MEQ/L (21-32); CHLORIDE LEVEL 105 MEQ/L (98-107); CPK CREATINE PHOSPHOKINASE 3569 U/L (39-308); CREATININE FOR GFR 3.46 MG/DL (0.70-1.30); GLUCOSE, FASTING 175 MG/DL (70-100); POTASSIUM SERUM 3.3 MEQ/L (3.5-5.1); SODIUM LEVEL 143 MEQ/L (136-145)
[2018-04-19] MEDS: HumaLOG INSULIN (NovoLOG) PER UNIT SC ×4 (08:59→21:00)
[2018-04-19] MEDS: ASPIRIN 81 MG ENTERIC TAB PO (09:00)
[2018-04-19] MEDS: POTASSIUM CHLORIDE 10 MEQ SR TABLET PO (09:00)
[2018-04-19] MEDS: NS 500 ML IV (09:00)
[2018-04-19] MEDS: ACETAMINOPHEN TAB 650MG DOSE (2X325MG) PO (09:04)
[2018-04-19 09:08] LABS: MAGNESIUM LEVEL 2.1 MG/DL (1.8-2.4)
[2018-04-19] MEDS ORDERED: NORCO, ANEXSIA 5/325MG TABLET (HYDROcodone/ACETAMINOPHEN) PO (09:30)
[2018-04-19] MEDS: NS 1,000 ML IV ×3 (10:00→23:45)
[2018-04-19] MEDS: NEBIVOLOL 5 MG TAB (BYSTOLIC) PO (10:35)
[2018-04-19 11:10] LABS: BEDSIDE GLUCOSE 173 MG/DL (83-110)
[2018-04-19 11:49] LABS: TROPONIN I 0.15 NG/ML (< 0.10)
[2018-04-19 11:55] LABS: LACTIC ACID SEPSIS PROTOCOL 2.6 MMOL/L (0.4-2.0)
[2018-04-19 12:00] LABS: CK-MB VALUE MASS 30.6 NG/ML (<3.6); CPK CREATINE PHOSPHOKINASE 3418 U/L (39-308); MB/CK RELATIVE INDEX 0.89 (< OR =4)
[2018-04-19 12:12] LABS: BEDSIDE GLUCOSE 135 MG/DL (83-110)
[2018-04-19 12:57] LABS: OSMOLALITY URINE 387 MOSM/KG (500-800)
[2018-04-19 13:26] LABS: CHLORIDE,RANDOM URINE 17 MEQ/L; SODIUM,RANDOM URINE 21 MEQ/L; TOTAL PROTEIN,RANDOM URINE 139.1 MG/DL (0.0-12.0)
[2018-04-19] MEDS: LORazepam 1 MG TAB PO (14:00)
[2018-04-19 14:46] LABS: ANION GAP 13 MEQ/L (8-16); BLOOD UREA NITROGEN 112 MG/DL (7-18); CALCIUM LEVEL 7.3 MG/DL (8.8-10.2); CARBON DIOXIDE LEVEL 23 MEQ/L (21-32); CHLORIDE LEVEL 104 MEQ/L (98-107); CREATININE FOR GFR 3.51 MG/DL (0.70-1.30); GLOMERULAR FILTRATION RATE 17.8 (>35); GLUCOSE, FASTING 153 MG/DL (70-100); MAGNESIUM LEVEL 2.1 MG/DL (1.8-2.4); POTASSIUM SERUM 3.8 MEQ/L (3.5-5.1); SODIUM LEVEL 140 MEQ/L (136-145)
[2018-04-19 14:50] LABS: TROPONIN I 0.14 NG/ML (< 0.10)
[2018-04-19 15:00] LABS: CK-MB VALUE MASS 27.4 NG/ML (<3.6); CPK CREATINE PHOSPHOKINASE 3219 U/L (39-308); MB/CK RELATIVE INDEX 0.85 (< OR =4)
[2018-04-19 17:06] LABS: BEDSIDE GLUCOSE 144 MG/DL (83-110)
[2018-04-19 20:19] LABS: TROPONIN I 0.14 NG/ML (< 0.10)
[2018-04-19 20:20] LABS: CK-MB VALUE MASS 20.7 NG/ML (<3.6)
[2018-04-19 20:31] LABS: CPK CREATINE PHOSPHOKINASE 3083 U/L (39-308); MB/CK RELATIVE INDEX 0.67 (< OR =4)
[2018-04-19 21:21] LABS: BEDSIDE GLUCOSE 116 MG/DL (83-110)
[2018-04-19] MEDS: SIMVASTATIN 20 MG TAB PO (21:27)
[2018-04-20 03:14] LABS: TROPONIN I 0.13 NG/ML (< 0.10)
[2018-04-20 03:25] LABS: CK-MB VALUE MASS 14.3 NG/ML (<3.6); CPK CREATINE PHOSPHOKINASE 2671 U/L (39-308); MB/CK RELATIVE INDEX 0.53 (< OR =4)
[2018-04-20] MEDS: NS 1,000 ML IV ×3 (05:03→20:34)
[2018-04-20 05:46] LABS: HEMOGLOBIN 9.5 g/dl (13.5-17.5); MEAN CORPUSCULAR HEMOGLOBIN 30.4 pg (27.0-33.0); MEAN CORPUSCULAR HGB CONC 33.9 g/dl (32.0-36.5); MEAN CORPUSCULAR VOLUME 89.7 fl (80.0-96.0); PLATELET COUNT, AUTOMATED 172 10^3/uL (150-450); RED BLOOD COUNT 3.12 10^6/uL (4.30-6.10); RED CELL DISTRIBUTION WIDTH 13.2 % (11.5-14.5); WHITE BLOOD COUNT 12.4 10^3/uL (4.0-10.0)
[2018-04-20 06:12] LABS: ANION GAP 12 MEQ/L (8-16); BLOOD UREA NITROGEN 112 MG/DL (7-18); CALCIUM LEVEL 7.1 MG/DL (8.8-10.2); CARBON DIOXIDE LEVEL 23 MEQ/L (21-32); CHLORIDE LEVEL 105 MEQ/L (98-107); GLOMERULAR FILTRATION RATE 17.8 (>35); GLUCOSE, FASTING 126 MG/DL (70-100); MAGNESIUM LEVEL 1.8 MG/DL (1.8-2.4); POTASSIUM SERUM 3.6 MEQ/L (3.5-5.1); SODIUM LEVEL 140 MEQ/L (136-145)
[2018-04-20] MEDS: HumaLOG INSULIN (NovoLOG) PER UNIT SC ×4 (07:30→21:00)
[2018-04-20] MEDS: ASPIRIN 81 MG ENTERIC TAB PO (07:53)
[2018-04-20] MEDS: NEBIVOLOL 5 MG TAB (BYSTOLIC) PO (07:53)
[2018-04-20 11:03] LABS: CHOLESTEROL LEVEL 87 MG/DL (<200); HDL CHOLESTEROL 29 MG/DL (>40); LDL CHOLESTEROL 35.4 MG/DL (<100); NON-HDL-C 58 MG/DL; TRIGLYCERIDES LEVEL 113 MG/DL (<150)
[2018-04-20 12:35] LABS: BEDSIDE GLUCOSE 121 MG/DL (83-110)
[2018-04-20] MEDS: SANTYL OINT 30GM TOP (15:52)
[2018-04-20] MEDS: BISACODYL 10 MG SUPP PR (15:52)
[2018-04-20 16:55] LABS: BEDSIDE GLUCOSE 131 MG/DL (83-110)
[2018-04-20 21:31] LABS: BEDSIDE GLUCOSE 155 MG/DL (83-110)
[2018-04-20] MEDS: SIMVASTATIN 20 MG TAB PO (21:32)
[2018-04-21 05:28] LABS: HEMATOCRIT 29.6 % (42.0-52.0); HEMOGLOBIN 10.1 g/dl (13.5-17.5); MEAN CORPUSCULAR HEMOGLOBIN 30.4 pg (27.0-33.0); MEAN CORPUSCULAR HGB CONC 34.1 g/dl (32.0-36.5); MEAN CORPUSCULAR VOLUME 89.2 fl (80.0-96.0); PLATELET COUNT, AUTOMATED 187 10^3/uL (150-450); RED BLOOD COUNT 3.32 10^6/uL (4.30-6.10); RED CELL DISTRIBUTION WIDTH 13.3 % (11.5-14.5)
[2018-04-21 05:52] LABS: ANION GAP 12 MEQ/L (8-16); BLOOD UREA NITROGEN 104 MG/DL (7-18); CALCIUM LEVEL 7.3 MG/DL (8.8-10.2); CARBON DIOXIDE LEVEL 21 MEQ/L (21-32); CHLORIDE LEVEL 109 MEQ/L (98-107); CREATININE FOR GFR 3.26 MG/DL (0.70-1.30); GLOMERULAR FILTRATION RATE 19.3 (>35); GLUCOSE, FASTING 177 MG/DL (70-100); MAGNESIUM LEVEL 1.9 MG/DL (1.8-2.4); POTASSIUM SERUM 3.5 MEQ/L (3.5-5.1); SODIUM LEVEL 142 MEQ/L (136-145)
[2018-04-21] MEDS: ASPIRIN 81 MG ENTERIC TAB PO (09:30)
[2018-04-21] MEDS: HumaLOG INSULIN (NovoLOG) PER UNIT SC ×4 (09:30→20:14)
[2018-04-21] MEDS: NEBIVOLOL 5 MG TAB (BYSTOLIC) PO (09:30)
[2018-04-21] MEDS: SANTYL OINT 30GM TOP (11:09)
[2018-04-21 11:59] LABS: BEDSIDE GLUCOSE 152 MG/DL (83-110)
[2018-04-21 16:55] LABS: BEDSIDE GLUCOSE 139 MG/DL (83-110)
[2018-04-21] MEDS: NS 1,000 ML IV (19:24)
[2018-04-21 20:06] LABS: BEDSIDE GLUCOSE 137 MG/DL (83-110)
[2018-04-21] MEDS: SIMVASTATIN 20 MG TAB PO (20:14)
[2018-04-22 05:34] LABS: HEMATOCRIT 30.5 % (42.0-52.0); HEMOGLOBIN 10.3 g/dl (13.5-17.5); MEAN CORPUSCULAR HEMOGLOBIN 30.1 pg (27.0-33.0); MEAN CORPUSCULAR HGB CONC 33.8 g/dl (32.0-36.5); MEAN CORPUSCULAR VOLUME 89.2 fl (80.0-96.0); PLATELET COUNT, AUTOMATED 194 10^3/uL (150-450); RED BLOOD COUNT 3.42 10^6/uL (4.30-6.10); RED CELL DISTRIBUTION WIDTH 13.3 % (11.5-14.5); WHITE BLOOD COUNT 12.7 10^3/uL (4.0-10.0)
[2018-04-22 05:52] LABS: ANION GAP 11 MEQ/L (8-16); BLOOD UREA NITROGEN 98 MG/DL (7-18); CALCIUM LEVEL 7.5 MG/DL (8.8-10.2); CARBON DIOXIDE LEVEL 21 MEQ/L (21-32); CHLORIDE LEVEL 111 MEQ/L (98-107); CPK CREATINE PHOSPHOKINASE 496 U/L (39-308); CREATININE FOR GFR 3.06 MG/DL (0.70-1.30); GLOMERULAR FILTRATION RATE 20.8 (>35); GLUCOSE, FASTING 159 MG/DL (70-100); MAGNESIUM LEVEL 1.9 MG/DL (1.8-2.4); POTASSIUM SERUM 3.9 MEQ/L (3.5-5.1); SODIUM LEVEL 143 MEQ/L (136-145)
[2018-04-22] MEDS: DONEPEZIL 5 MG TAB PO (09:48)
[2018-04-22] MEDS: SANTYL OINT 30GM TOP (09:48)
[2018-04-22] MEDS: NEBIVOLOL 5 MG TAB (BYSTOLIC) PO (09:48)
[2018-04-22] MEDS: HumaLOG INSULIN (NovoLOG) PER UNIT SC ×4 (09:48→20:37)
[2018-04-22] MEDS: ASPIRIN 81 MG ENTERIC TAB PO (09:48)
[2018-04-22 11:55] LABS: BEDSIDE GLUCOSE 151 MG/DL (83-110)
[2018-04-22] MEDS: NS 1,000 ML IV (17:51)
[2018-04-22 18:00] LABS: BEDSIDE GLUCOSE 228 MG/DL (83-110)
[2018-04-22 20:35] LABS: BEDSIDE GLUCOSE 192 MG/DL (83-110)
[2018-04-22] MEDS: SIMVASTATIN 20 MG TAB PO (20:37)
[2018-04-22] MEDS: ACETAMINOPHEN TAB 650MG DOSE (2X325MG) PO (21:29)
[2018-04-22 23:17] LABS: AMORPHOUS SEDIMENT RFX SMALL (NEGATIVE); KETONE, URINE AUTO RFX NEGATIVE (NEGATIVE); LEUKOCYTE ESTERASE UR AUTO RFX TRACE (NEGATIVE); MUCUS, URINE RFX SMALL (NEGATIVE); NITRITE, URINE AUTO RFX NEGATIVE (NEGATIVE); RBC, URINE AUTO RFX TNTC /HPF (0-3); SPECIFIC GRAVITY UR AUTO RFX 1.011 (1.002-1.035); SQUAM EPITHELIAL CELL UR AURFX 4 /HPF (0-6); WBC, URINE AUTO RFX 26 /HPF (0-3)
[2018-04-23 04:35] LABS: HEMATOCRIT 26.3 % (42.0-52.0); HEMOGLOBIN 8.9 g/dl (13.5-17.5); MEAN CORPUSCULAR HEMOGLOBIN 30.4 pg (27.0-33.0); MEAN CORPUSCULAR HGB CONC 33.8 g/dl (32.0-36.5); MEAN CORPUSCULAR VOLUME 89.8 fl (80.0-96.0); PLATELET COUNT, AUTOMATED 159 10^3/uL (150-450); RED BLOOD COUNT 2.93 10^6/uL (4.30-6.10); RED CELL DISTRIBUTION WIDTH 13.5 % (11.5-14.5); WHITE BLOOD COUNT 10.1 10^3/uL (4.0-10.0)
[2018-04-23 04:55] LABS: ANION GAP 10 MEQ/L (8-16); BLOOD UREA NITROGEN 93 MG/DL (7-18); CALCIUM LEVEL 7.3 MG/DL (8.8-10.2); CARBON DIOXIDE LEVEL 23 MEQ/L (21-32); CHLORIDE LEVEL 110 MEQ/L (98-107); CPK CREATINE PHOSPHOKINASE 269 U/L (39-308); CREATININE FOR GFR 2.94 MG/DL (0.70-1.30); GLOMERULAR FILTRATION RATE 21.8 (>35); GLUCOSE, FASTING 153 MG/DL (70-100); MAGNESIUM LEVEL 1.8 MG/DL (1.8-2.4); POTASSIUM SERUM 3.4 MEQ/L (3.5-5.1); SODIUM LEVEL 143 MEQ/L (136-145)
[2018-04-23] MEDS: HumaLOG INSULIN (NovoLOG) PER UNIT SC ×4 (08:14→20:55)
[2018-04-23] MEDS: cefTRIAXone SOD 1 GM in D5W MINI-BAG PLUS 50 ML IV (08:14)
[2018-04-23] MEDS: ASPIRIN 81 MG ENTERIC TAB PO (08:15)
[2018-04-23] MEDS: DONEPEZIL 5 MG TAB PO (08:15)
[2018-04-23] MEDS: ACETAMINOPHEN TAB 650MG DOSE (2X325MG) PO ×2 (08:15→17:40)
[2018-04-23] MEDS: NEBIVOLOL 5 MG TAB (BYSTOLIC) PO (08:15)
[2018-04-23] MEDS: POTASSIUM CHLORIDE 10 MEQ SR TABLET PO (08:15)
[2018-04-23] MEDS: SANTYL OINT 30GM TOP (08:16)
[2018-04-23 11:49] LABS: BEDSIDE GLUCOSE 221 MG/DL (83-110)
[2018-04-23 16:35] LABS: BEDSIDE GLUCOSE 181 MG/DL (83-110)
[2018-04-23] MEDS: NS 1,000 ML IV (17:02)
[2018-04-23] MEDS: NS 0.45% 1,000 ML IV (17:40)
[2018-04-23 20:50] LABS: BEDSIDE GLUCOSE 162 MG/DL (83-110)
[2018-04-23] MEDS: SIMVASTATIN 20 MG TAB PO (20:55)
[2018-04-24 05:12] LABS: HEMATOCRIT 28.5 % (42.0-52.0); HEMOGLOBIN 9.7 g/dl (13.5-17.5); MEAN CORPUSCULAR HEMOGLOBIN 29.8 pg (27.0-33.0); MEAN CORPUSCULAR VOLUME 87.4 fl (80.0-96.0); PLATELET COUNT, AUTOMATED 194 10^3/uL (150-450); RED BLOOD COUNT 3.26 10^6/uL (4.30-6.10); RED CELL DISTRIBUTION WIDTH 13.5 % (11.5-14.5); WHITE BLOOD COUNT 15.8 10^3/uL (4.0-10.0)
[2018-04-24 05:31] LABS: ANION GAP 8 MEQ/L (8-16); BLOOD UREA NITROGEN 90 MG/DL (7-18); CALCIUM LEVEL 7.5 MG/DL (8.8-10.2); CARBON DIOXIDE LEVEL 23 MEQ/L (21-32); CHLORIDE LEVEL 109 MEQ/L (98-107); CPK CREATINE PHOSPHOKINASE 234 U/L (39-308); CREATININE FOR GFR 2.71 MG/DL (0.70-1.30); GLOMERULAR FILTRATION RATE 23.9 (>35); GLUCOSE, FASTING 158 MG/DL (70-100); MAGNESIUM LEVEL 1.7 MG/DL (1.8-2.4); POTASSIUM SERUM 3.9 MEQ/L (3.5-5.1); SODIUM LEVEL 140 MEQ/L (136-145)
[2018-04-24] MEDS ORDERED: MEROPENEM INJ 1 GM in APPROPRIATE DILUENT 1 EA IV (07:15)
[2018-04-24] MEDS: MAG SULF 1GM/100ML (MAG RUN) 1 GM in APPROPRIATE DILUENT 1 EA IV (07:48)
[2018-04-24] MEDS: HumaLOG INSULIN (NovoLOG) PER UNIT SC ×4 (07:49→20:35)
[2018-04-24] MEDS: ASPIRIN 81 MG ENTERIC TAB PO (09:39)
[2018-04-24] MEDS: NEBIVOLOL 5 MG TAB (BYSTOLIC) PO (09:39)
[2018-04-24] MEDS: MEROPENEM INJ 500 MG in APPROPRIATE DILUENT 1 EA IV ×2 (09:39→20:35)
[2018-04-24] MEDS: DONEPEZIL 5 MG TAB PO (09:39)
[2018-04-24] MEDS: SANTYL OINT 30GM TOP (09:40)
[2018-04-24 11:38] LABS: BEDSIDE GLUCOSE 163 MG/DL (83-110)
[2018-04-24] MEDS: NS 0.45% 1,000 ML IV (12:08)
[2018-04-24 16:36] LABS: BEDSIDE GLUCOSE 225 MG/DL (83-110)
[2018-04-24] MEDS: amLODIPine 5 MG TAB PO (16:53)
[2018-04-24 20:32] LABS: BEDSIDE GLUCOSE 184 MG/DL (83-110)
[2018-04-24] MEDS: SIMVASTATIN 20 MG TAB PO (20:34)
[2018-04-24] MEDS: ACETAMINOPHEN TAB 650MG DOSE (2X325MG) PO (21:46)
[2018-04-25 04:58] LABS: HEMATOCRIT 25.5 % (42.0-52.0); HEMOGLOBIN 8.8 g/dl (13.5-17.5); MEAN CORPUSCULAR HGB CONC 34.5 g/dl (32.0-36.5); PLATELET COUNT, AUTOMATED 199 10^3/uL (150-450); RED BLOOD COUNT 2.93 10^6/uL (4.30-6.10); RED CELL DISTRIBUTION WIDTH 13.4 % (11.5-14.5); WHITE BLOOD COUNT 15.1 10^3/uL (4.0-10.0)
[2018-04-25 05:21] LABS: ANION GAP 9 MEQ/L (8-16); BLOOD UREA NITROGEN 82 MG/DL (7-18); C REACTIVE PROTEIN QUANTITATIV 9.31 MG/DL (0.00-0.30); CALCIUM LEVEL 7.6 MG/DL (8.8-10.2); CARBON DIOXIDE LEVEL 23 MEQ/L (21-32); CHLORIDE LEVEL 110 MEQ/L (98-107); CPK CREATINE PHOSPHOKINASE 150 U/L (39-308); CREATININE FOR GFR 2.36 MG/DL (0.70-1.30); GLOMERULAR FILTRATION RATE 28.1 (>35); GLUCOSE, FASTING 163 MG/DL (70-100); MAGNESIUM LEVEL 2.2 MG/DL (1.8-2.4); POTASSIUM SERUM 3.9 MEQ/L (3.5-5.1); SODIUM LEVEL 142 MEQ/L (136-145)
[2018-04-25] MEDS: MEROPENEM INJ 500 MG in APPROPRIATE DILUENT 1 EA IV ×2 (08:32→20:15)
[2018-04-25] MEDS: NS 0.45% 1,000 ML IV (08:32)
[2018-04-25] MEDS: HumaLOG INSULIN (NovoLOG) PER UNIT SC ×4 (09:36→20:15)
[2018-04-25] MEDS: ASPIRIN 81 MG ENTERIC TAB PO (10:16)
[2018-04-25] MEDS: DONEPEZIL 5 MG TAB PO (10:17)
[2018-04-25] MEDS: NEBIVOLOL 5 MG TAB (BYSTOLIC) PO (10:17)
[2018-04-25] MEDS: amLODIPine 5 MG TAB PO (10:17)
[2018-04-25] MEDS: SANTYL OINT 30GM TOP (10:17)
[2018-04-25 11:30] LABS: BEDSIDE GLUCOSE 196 MG/DL (83-110)
[2018-04-25 16:37] LABS: BEDSIDE GLUCOSE 187 MG/DL (83-110)
[2018-04-25] MEDS: SIMVASTATIN 20 MG TAB PO (20:15)
[2018-04-25 20:21] LABS: BEDSIDE GLUCOSE 153 MG/DL (83-110)
[2018-04-26] MEDS ORDERED: SLF 3 ML SYR IV (04:45)
[2018-04-26] MEDS: SLF 3 ML SYR IV ×3 (05:12→20:58)
[2018-04-26 05:42] LABS: HEMATOCRIT 24.9 % (42.0-52.0); HEMOGLOBIN 8.7 g/dl (13.5-17.5); MEAN CORPUSCULAR HEMOGLOBIN 30.6 pg (27.0-33.0); MEAN CORPUSCULAR HGB CONC 34.9 g/dl (32.0-36.5); MEAN CORPUSCULAR VOLUME 87.7 fl (80.0-96.0); PLATELET COUNT, AUTOMATED 229 10^3/uL (150-450); RED BLOOD COUNT 2.84 10^6/uL (4.30-6.10); RED CELL DISTRIBUTION WIDTH 13.6 % (11.5-14.5); WHITE BLOOD COUNT 16.1 10^3/uL (4.0-10.0)
[2018-04-26 06:05] LABS: ANION GAP 10 MEQ/L (8-16); BLOOD UREA NITROGEN 73 MG/DL (7-18); C REACTIVE PROTEIN QUANTITATIV 5.41 MG/DL (0.00-0.30); CALCIUM LEVEL 7.4 MG/DL (8.8-10.2); CARBON DIOXIDE LEVEL 22 MEQ/L (21-32); CHLORIDE LEVEL 111 MEQ/L (98-107); CPK CREATINE PHOSPHOKINASE 109 U/L (39-308); CREATININE FOR GFR 2.13 MG/DL (0.70-1.30); GLOMERULAR FILTRATION RATE 31.6 (>35); GLUCOSE, FASTING 153 MG/DL (70-100); MAGNESIUM LEVEL 1.9 MG/DL (1.8-2.4); SODIUM LEVEL 143 MEQ/L (136-145)
[2018-04-26] MEDS: MEROPENEM INJ 500 MG in APPROPRIATE DILUENT 1 EA IV ×2 (08:45→20:58)
[2018-04-26] MEDS: DONEPEZIL 5 MG TAB PO (08:45)
[2018-04-26] MEDS: HumaLOG INSULIN (NovoLOG) PER UNIT SC ×4 (08:45→20:47)
[2018-04-26] MEDS: amLODIPine 5 MG TAB PO (08:46)
[2018-04-26] MEDS: NEBIVOLOL 5 MG TAB (BYSTOLIC) PO (08:46)
[2018-04-26] MEDS: SANTYL OINT 30GM TOP (08:46)
[2018-04-26] MEDS: ASPIRIN 81 MG ENTERIC TAB PO (08:46)
[2018-04-26] MEDS: BISACODYL 10 MG SUPP PR (10:14)
[2018-04-26 10:41] LABS: ALBUMIN 1.7 GM/DL (3.2-5.2)
[2018-04-26 11:27] LABS: BEDSIDE GLUCOSE 144 MG/DL (83-110)
[2018-04-26] MEDS: MAG SULF 1GM/100ML (MAG RUN) 1 GM in APPROPRIATE DILUENT 1 EA IV (13:22)
[2018-04-26 16:24] LABS: BEDSIDE GLUCOSE 146 MG/DL (83-110)
[2018-04-26 20:47] LABS: BEDSIDE GLUCOSE 159 MG/DL (83-110)
[2018-04-26] MEDS: SIMVASTATIN 20 MG TAB PO (20:58)
[2018-04-27] MEDS: SLF 3 ML SYR IV ×3 (06:00→20:53)
[2018-04-27 06:27] LABS: C REACTIVE PROTEIN QUANTITATIV 3.92 MG/DL (0.00-0.30)
[2018-04-27 08:23] LABS: BASO % 0.1 % (0.0-1.0); EOS # 0.3 10^3/uL (0.0-0.50); EOS % 1.9 % (0.0-3.0); HEMATOCRIT 25.1 % (42.0-52.0); HEMOGLOBIN 8.6 g/dl (13.5-17.5); IMMATURE GRANULOCYTE % 0.9 % (0-3.0); LYMPH # 1.1 10^3/uL (1.5-4.5); LYMPH % 7.2 % (24.0-44.0); MEAN CORPUSCULAR HEMOGLOBIN 30.4 pg (27.0-33.0); MEAN CORPUSCULAR HGB CONC 34.3 g/dl (32.0-36.5); MEAN CORPUSCULAR VOLUME 88.7 fl (80.0-96.0); MONO # 1.1 10^3/uL (0.0-0.8); MONO % 7.2 % (0.0-5.0); NEUTROPHILS # 12.6 10^3/uL (1.8-7.7); NEUTROPHILS % 82.7 % (36.0-66.0); PLATELET COUNT, AUTOMATED 260 10^3/uL (150-450); RED BLOOD COUNT 2.83 10^6/uL (4.30-6.10); RED CELL DISTRIBUTION WIDTH 13.6 % (11.5-14.5); WHITE BLOOD COUNT 15.3 10^3/uL (4.0-10.0)
[2018-04-27 08:38] LABS: ALBUMIN 1.7 GM/DL (3.2-5.2); ALBUMIN/GLOBULIN RATIO 0.55 (1.00-1.93); ALKALINE PHOSPHATASE 84 U/L (45-117); ALT/SGPT 41 U/L (12-78); ANION GAP 11 MEQ/L (8-16); AST/SGOT 25 U/L (7-37); BILIRUBIN,TOTAL 0.4 MG/DL (0.2-1.0); BLOOD UREA NITROGEN 60 MG/DL (7-18); CALCIUM LEVEL 7.3 MG/DL (8.8-10.2); CARBON DIOXIDE LEVEL 22 MEQ/L (21-32); CHLORIDE LEVEL 113 MEQ/L (98-107); CREATININE FOR GFR 1.91 MG/DL (0.70-1.30); GLOMERULAR FILTRATION RATE 35.8 (>35); GLUCOSE, FASTING 153 MG/DL (70-100); MAGNESIUM LEVEL 2.1 MG/DL (1.8-2.4); POTASSIUM SERUM 4.1 MEQ/L (3.5-5.1); SODIUM LEVEL 146 MEQ/L (136-145); TOTAL PROTEIN 4.8 GM/DL (6.4-8.2)
[2018-04-27] MEDS: ASPIRIN 81 MG ENTERIC TAB PO (08:51)
[2018-04-27] MEDS: DONEPEZIL 5 MG TAB PO (08:51)
[2018-04-27] MEDS: NEBIVOLOL 5 MG TAB (BYSTOLIC) PO (08:51)
[2018-04-27] MEDS: amLODIPine 5 MG TAB PO (08:51)
[2018-04-27] MEDS: SANTYL OINT 30GM TOP (08:52)
[2018-04-27] MEDS: MEROPENEM INJ 500 MG in APPROPRIATE DILUENT 1 EA IV ×2 (08:52→20:53)
[2018-04-27] MEDS: HumaLOG INSULIN (NovoLOG) PER UNIT SC ×4 (08:52→21:00)
[2018-04-27 11:50] LABS: BEDSIDE GLUCOSE 156 MG/DL (83-110)
[2018-04-27 17:21] LABS: BEDSIDE GLUCOSE 134 MG/DL (83-110)
[2018-04-27] MEDS: SIMVASTATIN 20 MG TAB PO (20:53)
[2018-04-27 21:01] LABS: BEDSIDE GLUCOSE 125 MG/DL (83-110)
[2018-04-28] MEDS: SLF 3 ML SYR IV ×3 (05:41→21:09)
[2018-04-28 05:49] LABS: BASO % 0.2 % (0.0-1.0); EOS # 0.3 10^3/uL (0.0-0.50); EOS % 1.8 % (0.0-3.0); HEMATOCRIT 27.4 % (42.0-52.0); HEMOGLOBIN 9.2 g/dl (13.5-17.5); IMMATURE GRANULOCYTE % 0.9 % (0-3.0); LYMPH # 1.3 10^3/uL (1.5-4.5); LYMPH % 7.7 % (24.0-44.0); MEAN CORPUSCULAR HEMOGLOBIN 30.5 pg (27.0-33.0); MEAN CORPUSCULAR HGB CONC 33.6 g/dl (32.0-36.5); MEAN CORPUSCULAR VOLUME 90.7 fl (80.0-96.0); MONO # 1.4 10^3/uL (0.0-0.8); MONO % 8.1 % (0.0-5.0); NEUTROPHILS # 13.8 10^3/uL (1.8-7.7); NEUTROPHILS % 81.3 % (36.0-66.0); PLATELET COUNT, AUTOMATED 261 10^3/uL (150-450); RED BLOOD COUNT 3.02 10^6/uL (4.30-6.10); RED CELL DISTRIBUTION WIDTH 13.6 % (11.5-14.5)
[2018-04-28 06:23] LABS: ALBUMIN 1.7 GM/DL (3.2-5.2); ALBUMIN/GLOBULIN RATIO 0.53 (1.00-1.93); ALKALINE PHOSPHATASE 83 U/L (45-117); ALT/SGPT 36 U/L (12-78); ANION GAP 8 MEQ/L (8-16); AST/SGOT 24 U/L (7-37); BILIRUBIN,TOTAL 0.4 MG/DL (0.2-1.0); BLOOD UREA NITROGEN 56 MG/DL (7-18); C REACTIVE PROTEIN QUANTITATIV 2.87 MG/DL (0.00-0.30); CALCIUM LEVEL 7.4 MG/DL (8.8-10.2); CARBON DIOXIDE LEVEL 25 MEQ/L (21-32); CHLORIDE LEVEL 113 MEQ/L (98-107); CREATININE FOR GFR 1.88 MG/DL (0.70-1.30); GLOMERULAR FILTRATION RATE 36.5 (>35); GLUCOSE, FASTING 148 MG/DL (70-100); MAGNESIUM LEVEL 1.8 MG/DL (1.8-2.4); POTASSIUM SERUM 4.4 MEQ/L (3.5-5.1); SODIUM LEVEL 146 MEQ/L (136-145); TOTAL PROTEIN 4.9 GM/DL (6.4-8.2)
[2018-04-28] MEDS: amLODIPine 5 MG TAB PO (08:35)
[2018-04-28] MEDS: DONEPEZIL 5 MG TAB PO (08:35)
[2018-04-28] MEDS: MEROPENEM INJ 500 MG in APPROPRIATE DILUENT 1 EA IV ×2 (08:35→21:09)
[2018-04-28] MEDS: NEBIVOLOL 5 MG TAB (BYSTOLIC) PO (08:35)
[2018-04-28] MEDS: ASPIRIN 81 MG ENTERIC TAB PO (08:35)
[2018-04-28] MEDS: HumaLOG INSULIN (NovoLOG) PER UNIT SC ×4 (08:36→21:00)
[2018-04-28] MEDS: SANTYL OINT 30GM TOP (09:00)
[2018-04-28 12:15] LABS: BEDSIDE GLUCOSE 103 MG/DL (83-110)
[2018-04-28 18:09] LABS: BEDSIDE GLUCOSE 153 MG/DL (83-110)
[2018-04-28 21:01] LABS: BEDSIDE GLUCOSE 156 MG/DL (83-110)
[2018-04-28] MEDS: SIMVASTATIN 20 MG TAB PO (21:09)
[2018-04-29] MEDS: SLF 3 ML SYR IV ×3 (05:01→20:29)
[2018-04-29] MEDS: ACETAMINOPHEN TAB 650MG DOSE (2X325MG) PO ×3 (05:16→22:56)
[2018-04-29 05:51] LABS: BASO % 0.2 % (0.0-1.0); EOS # 0.3 10^3/uL (0.0-0.50); EOS % 1.8 % (0.0-3.0); HEMATOCRIT 25.7 % (42.0-52.0); HEMOGLOBIN 8.8 g/dl (13.5-17.5); IMMATURE GRANULOCYTE % 0.7 % (0-3.0); LYMPH # 1.3 10^3/uL (1.5-4.5); LYMPH % 8.6 % (24.0-44.0); MEAN CORPUSCULAR HEMOGLOBIN 30.3 pg (27.0-33.0); MEAN CORPUSCULAR HGB CONC 34.2 g/dl (32.0-36.5); MEAN CORPUSCULAR VOLUME 88.6 fl (80.0-96.0); MONO # 1.3 10^3/uL (0.0-0.8); MONO % 8.3 % (0.0-5.0); NEUTROPHILS # 12.3 10^3/uL (1.8-7.7); NEUTROPHILS % 80.4 % (36.0-66.0); PLATELET COUNT, AUTOMATED 286 10^3/uL (150-450); RED CELL DISTRIBUTION WIDTH 13.4 % (11.5-14.5); WHITE BLOOD COUNT 15.3 10^3/uL (4.0-10.0)
[2018-04-29 06:14] LABS: ALBUMIN 1.7 GM/DL (3.2-5.2); ALBUMIN/GLOBULIN RATIO 0.52 (1.00-1.93); ALKALINE PHOSPHATASE 79 U/L (45-117); ALT/SGPT 31 U/L (12-78); ANION GAP 8 MEQ/L (8-16); AST/SGOT 21 U/L (7-37); BILIRUBIN,TOTAL 0.3 MG/DL (0.2-1.0); BLOOD UREA NITROGEN 56 MG/DL (7-18); CALCIUM LEVEL 7.4 MG/DL (8.8-10.2); CARBON DIOXIDE LEVEL 25 MEQ/L (21-32); CHLORIDE LEVEL 112 MEQ/L (98-107); CREATININE FOR GFR 1.67 MG/DL (0.70-1.30); GLOMERULAR FILTRATION RATE 41.8 (>35); GLUCOSE, FASTING 154 MG/DL (70-100); MAGNESIUM LEVEL 1.9 MG/DL (1.8-2.4); POTASSIUM SERUM 4.2 MEQ/L (3.5-5.1); SODIUM LEVEL 145 MEQ/L (136-145)
[2018-04-29 07:47] LABS: C REACTIVE PROTEIN QUANTITATIV 2.71 MG/DL (0.00-0.30)
[2018-04-29] MEDS: MEROPENEM INJ 500 MG in APPROPRIATE DILUENT 1 EA IV ×2 (07:57→20:28)
[2018-04-29] MEDS: HumaLOG INSULIN (NovoLOG) PER UNIT SC ×4 (08:11→21:00)
[2018-04-29] MEDS: ASPIRIN 81 MG ENTERIC TAB PO (08:13)
[2018-04-29] MEDS: NEBIVOLOL 5 MG TAB (BYSTOLIC) PO (08:19)
[2018-04-29] MEDS: SANTYL OINT 30GM TOP (08:20)
[2018-04-29] MEDS: DONEPEZIL 5 MG TAB PO (08:20)
[2018-04-29] MEDS: amLODIPine 5 MG TAB PO (08:20)
[2018-04-29 11:32] LABS: BEDSIDE GLUCOSE 203 MG/DL (83-110)
[2018-04-29 16:55] LABS: BEDSIDE GLUCOSE 121 MG/DL (83-110)
[2018-04-29] MEDS: SIMVASTATIN 20 MG TAB PO (20:28)
[2018-04-29 20:51] LABS: BEDSIDE GLUCOSE 147 MG/DL (83-110)
[2018-04-30] MEDS: SLF 3 ML SYR IV ×3 (05:16→20:06)
[2018-04-30 06:28] LABS: BASO % 0.2 % (0.0-1.0); EOS # 0.4 10^3/uL (0.0-0.50); EOS % 2.5 % (0.0-3.0); HEMATOCRIT 25.9 % (42.0-52.0); HEMOGLOBIN 8.6 g/dl (13.5-17.5); IMMATURE GRANULOCYTE % 0.6 % (0-3.0); LYMPH # 1.5 10^3/uL (1.5-4.5); LYMPH % 11.1 % (24.0-44.0); MEAN CORPUSCULAR HGB CONC 33.2 g/dl (32.0-36.5); MEAN CORPUSCULAR VOLUME 90.2 fl (80.0-96.0); MONO % 7.3 % (0.0-5.0); NEUTROPHILS # 10.9 10^3/uL (1.8-7.7); NEUTROPHILS % 78.3 % (36.0-66.0); PLATELET COUNT, AUTOMATED 304 10^3/uL (150-450); RED BLOOD COUNT 2.87 10^6/uL (4.30-6.10); RED CELL DISTRIBUTION WIDTH 13.3 % (11.5-14.5); WHITE BLOOD COUNT 13.9 10^3/uL (4.0-10.0)
[2018-04-30 06:47] LABS: ALBUMIN 1.7 GM/DL (3.2-5.2); ALBUMIN/GLOBULIN RATIO 0.53 (1.00-1.93); ALKALINE PHOSPHATASE 82 U/L (45-117); ALT/SGPT 31 U/L (12-78); ANION GAP 7 MEQ/L (8-16); AST/SGOT 22 U/L (7-37); BILIRUBIN,TOTAL 0.3 MG/DL (0.2-1.0); BLOOD UREA NITROGEN 55 MG/DL (7-18); CALCIUM LEVEL 7.4 MG/DL (8.8-10.2); CARBON DIOXIDE LEVEL 29 MEQ/L (21-32); CHLORIDE LEVEL 108 MEQ/L (98-107); GLUCOSE, FASTING 142 MG/DL (70-100); MAGNESIUM LEVEL 1.8 MG/DL (1.8-2.4); POTASSIUM SERUM 4.4 MEQ/L (3.5-5.1); SODIUM LEVEL 144 MEQ/L (136-145); TOTAL PROTEIN 4.9 GM/DL (6.4-8.2)
[2018-04-30] MEDS: DONEPEZIL 5 MG TAB PO (08:26)
[2018-04-30] MEDS: MEROPENEM INJ 500 MG in APPROPRIATE DILUENT 1 EA IV ×2 (08:26→20:06)
[2018-04-30] MEDS: ASPIRIN 81 MG ENTERIC TAB PO (08:26)
[2018-04-30] MEDS: HumaLOG INSULIN (NovoLOG) PER UNIT SC ×4 (08:26→20:19)
[2018-04-30] MEDS: amLODIPine 5 MG TAB PO (08:26)
[2018-04-30] MEDS: NEBIVOLOL 5 MG TAB (BYSTOLIC) PO (08:26)
[2018-04-30] MEDS: SANTYL OINT 30GM TOP (08:27)
[2018-04-30] MEDS: ACETAMINOPHEN TAB 650MG DOSE (2X325MG) PO ×2 (10:53→20:06)
[2018-04-30 11:23] LABS: BEDSIDE GLUCOSE 141 MG/DL (83-110)
[2018-04-30 16:33] LABS: BEDSIDE GLUCOSE 172 MG/DL (83-110)
[2018-04-30 20:00] LABS: BEDSIDE GLUCOSE 141 MG/DL (83-110)
[2018-04-30] MEDS: SIMVASTATIN 20 MG TAB PO (20:05)
[2018-05-01] MEDS: ACETAMINOPHEN TAB 650MG DOSE (2X325MG) PO (05:27)
[2018-05-01] MEDS: SLF 3 ML SYR IV ×3 (05:27→21:12)
[2018-05-01 06:07] LABS: BASO % 0.3 % (0.0-1.0); EOS # 0.3 10^3/uL (0.0-0.50); EOS % 2.5 % (0.0-3.0); HEMATOCRIT 24.2 % (42.0-52.0); IMMATURE GRANULOCYTE % 0.5 % (0-3.0); LYMPH # 1.3 10^3/uL (1.5-4.5); LYMPH % 10.5 % (24.0-44.0); MEAN CORPUSCULAR HEMOGLOBIN 29.6 pg (27.0-33.0); MEAN CORPUSCULAR HGB CONC 33.1 g/dl (32.0-36.5); MEAN CORPUSCULAR VOLUME 89.6 fl (80.0-96.0); MONO # 0.9 10^3/uL (0.0-0.8); MONO % 7.6 % (0.0-5.0); NEUTROPHILS # 9.5 10^3/uL (1.8-7.7); NEUTROPHILS % 78.6 % (36.0-66.0); PLATELET COUNT, AUTOMATED 283 10^3/uL (150-450); RED CELL DISTRIBUTION WIDTH 13.2 % (11.5-14.5); WHITE BLOOD COUNT 12.1 10^3/uL (4.0-10.0)
[2018-05-01 06:23] LABS: ALBUMIN 1.6 GM/DL (3.2-5.2); ALBUMIN/GLOBULIN RATIO 0.52 (1.00-1.93); ALKALINE PHOSPHATASE 78 U/L (45-117); ALT/SGPT 31 U/L (12-78); ANION GAP 8 MEQ/L (8-16); AST/SGOT 26 U/L (7-37); BILIRUBIN,TOTAL 0.2 MG/DL (0.2-1.0); BLOOD UREA NITROGEN 54 MG/DL (7-18); C REACTIVE PROTEIN QUANTITATIV 2.02 MG/DL (0.00-0.30); CALCIUM LEVEL 7.3 MG/DL (8.8-10.2); CARBON DIOXIDE LEVEL 26 MEQ/L (21-32); CHLORIDE LEVEL 109 MEQ/L (98-107); CREATININE FOR GFR 1.65 MG/DL (0.70-1.30); GLOMERULAR FILTRATION RATE 42.4 (>35); GLUCOSE, FASTING 147 MG/DL (70-100); MAGNESIUM LEVEL 1.9 MG/DL (1.8-2.4); POTASSIUM SERUM 4.7 MEQ/L (3.5-5.1); SODIUM LEVEL 143 MEQ/L (136-145); TOTAL PROTEIN 4.7 GM/DL (6.4-8.2)
[2018-05-01] MEDS: HumaLOG INSULIN (NovoLOG) PER UNIT SC ×4 (08:29→20:08)
[2018-05-01] MEDS: ASPIRIN 81 MG ENTERIC TAB PO (08:31)
[2018-05-01] MEDS: NEBIVOLOL 5 MG TAB (BYSTOLIC) PO (08:31)
[2018-05-01] MEDS: amLODIPine 5 MG TAB PO (08:31)
[2018-05-01] MEDS: DONEPEZIL 5 MG TAB PO (08:31)
[2018-05-01] MEDS: MEROPENEM INJ 500 MG in APPROPRIATE DILUENT 1 EA IV ×2 (08:31→20:08)
[2018-05-01] MEDS: SANTYL OINT 30GM TOP (08:32)
[2018-05-01 11:36] LABS: BEDSIDE GLUCOSE 167 MG/DL (83-110)
[2018-05-01 16:49] LABS: BEDSIDE GLUCOSE 173 MG/DL (83-110)
[2018-05-01 19:57] LABS: BEDSIDE GLUCOSE 182 MG/DL (83-110)
[2018-05-01] MEDS: SIMVASTATIN 20 MG TAB PO (20:07)
[2018-05-02] MEDS: SLF 3 ML SYR IV ×3 (05:20→22:12)
[2018-05-02 06:38] LABS: BASO % 0.3 % (0.0-1.0); EOS # 0.3 10^3/uL (0.0-0.50); EOS % 2.1 % (0.0-3.0); HEMATOCRIT 24.5 % (42.0-52.0); HEMOGLOBIN 8.2 g/dl (13.5-17.5); IMMATURE GRANULOCYTE % 0.4 % (0-3.0); LYMPH # 1.5 10^3/uL (1.5-4.5); LYMPH % 12.2 % (24.0-44.0); MEAN CORPUSCULAR HEMOGLOBIN 30.4 pg (27.0-33.0); MEAN CORPUSCULAR HGB CONC 33.5 g/dl (32.0-36.5); MEAN CORPUSCULAR VOLUME 90.7 fl (80.0-96.0); MONO # 0.9 10^3/uL (0.0-0.8); MONO % 7.8 % (0.0-5.0); NEUTROPHILS # 9.3 10^3/uL (1.8-7.7); NEUTROPHILS % 77.2 % (36.0-66.0); PLATELET COUNT, AUTOMATED 292 10^3/uL (150-450); RED CELL DISTRIBUTION WIDTH 13.4 % (11.5-14.5); WHITE BLOOD COUNT 12.1 10^3/uL (4.0-10.0)
[2018-05-02 07:01] LABS: ALBUMIN 1.7 GM/DL (3.2-5.2); ALBUMIN/GLOBULIN RATIO 0.53 (1.00-1.93); ALKALINE PHOSPHATASE 83 U/L (45-117); ALT/SGPT 32 U/L (12-78); ANION GAP 4 MEQ/L (8-16); AST/SGOT 23 U/L (7-37); BILIRUBIN,TOTAL 0.3 MG/DL (0.2-1.0); BLOOD UREA NITROGEN 54 MG/DL (7-18); CALCIUM LEVEL 7.2 MG/DL (8.8-10.2); CARBON DIOXIDE LEVEL 30 MEQ/L (21-32); CHLORIDE LEVEL 110 MEQ/L (98-107); CREATININE FOR GFR 1.69 MG/DL (0.70-1.30); GLOMERULAR FILTRATION RATE 41.3 (>35); GLUCOSE, FASTING 159 MG/DL (70-100); MAGNESIUM LEVEL 1.9 MG/DL (1.8-2.4); POTASSIUM SERUM 4.7 MEQ/L (3.5-5.1); SODIUM LEVEL 144 MEQ/L (136-145); TOTAL PROTEIN 4.9 GM/DL (6.4-8.2)
[2018-05-02] MEDS: amLODIPine 5 MG TAB PO (08:03)
[2018-05-02] MEDS: NEBIVOLOL 5 MG TAB (BYSTOLIC) PO (08:04)
[2018-05-02] MEDS: HumaLOG INSULIN (NovoLOG) PER UNIT SC ×4 (08:04→20:20)
[2018-05-02] MEDS: DONEPEZIL 5 MG TAB PO (08:04)
[2018-05-02] MEDS: ASPIRIN 81 MG ENTERIC TAB PO (08:04)
[2018-05-02] MEDS: MEROPENEM INJ 500 MG in APPROPRIATE DILUENT 1 EA IV ×2 (08:05→20:20)
[2018-05-02] MEDS: SANTYL OINT 30GM TOP (08:05)
[2018-05-02 11:31] LABS: BEDSIDE GLUCOSE 170 MG/DL (83-110)
[2018-05-02 17:00] LABS: BEDSIDE GLUCOSE 121 MG/DL (83-110)
[2018-05-02] MEDS: SIMVASTATIN 20 MG TAB PO (20:20)
[2018-05-02 20:24] LABS: BEDSIDE GLUCOSE 203 MG/DL (83-110)
[2018-05-03 06:44] LABS: BASO % 0.4 % (0.0-1.0); EOS # 0.3 10^3/uL (0.0-0.50); EOS % 2.5 % (0.0-3.0); HEMATOCRIT 24.4 % (42.0-52.0); HEMOGLOBIN 8.1 g/dl (13.5-17.5); IMMATURE GRANULOCYTE % 0.5 % (0-3.0); LYMPH # 1.4 10^3/uL (1.5-4.5); LYMPH % 12.5 % (24.0-44.0); MEAN CORPUSCULAR HEMOGLOBIN 29.9 pg (27.0-33.0); MEAN CORPUSCULAR HGB CONC 33.2 g/dl (32.0-36.5); MONO # 0.9 10^3/uL (0.0-0.8); NEUTROPHILS # 8.7 10^3/uL (1.8-7.7); NEUTROPHILS % 76.1 % (36.0-66.0); PLATELET COUNT, AUTOMATED 285 10^3/uL (150-450); RED BLOOD COUNT 2.71 10^6/uL (4.30-6.10); RED CELL DISTRIBUTION WIDTH 13.3 % (11.5-14.5); WHITE BLOOD COUNT 11.4 10^3/uL (4.0-10.0)
[2018-05-03] MEDS: SLF 3 ML SYR IV ×3 (06:48→21:17)
[2018-05-03 07:11] LABS: ALBUMIN 1.8 GM/DL (3.2-5.2); ALBUMIN/GLOBULIN RATIO 0.53 (1.00-1.93); ALKALINE PHOSPHATASE 92 U/L (45-117); ALT/SGPT 35 U/L (12-78); ANION GAP 8 MEQ/L (8-16); AST/SGOT 25 U/L (7-37); BILIRUBIN,TOTAL 0.4 MG/DL (0.2-1.0); BLOOD UREA NITROGEN 54 MG/DL (7-18); C REACTIVE PROTEIN QUANTITATIV 1.68 MG/DL (0.00-0.30); CALCIUM LEVEL 7.4 MG/DL (8.8-10.2); CARBON DIOXIDE LEVEL 28 MEQ/L (21-32); CHLORIDE LEVEL 109 MEQ/L (98-107); GLUCOSE, FASTING 145 MG/DL (70-100); MAGNESIUM LEVEL 1.9 MG/DL (1.8-2.4); POTASSIUM SERUM 4.8 MEQ/L (3.5-5.1); SODIUM LEVEL 145 MEQ/L (136-145); TOTAL PROTEIN 5.2 GM/DL (6.4-8.2)
[2018-05-03] MEDS: MEROPENEM INJ 500 MG in APPROPRIATE DILUENT 1 EA IV (07:45)
[2018-05-03] MEDS: amLODIPine 5 MG TAB PO (07:45)
[2018-05-03] MEDS: ASPIRIN 81 MG ENTERIC TAB PO (07:45)
[2018-05-03] MEDS: HumaLOG INSULIN (NovoLOG) PER UNIT SC ×4 (07:45→21:18)
[2018-05-03] MEDS: SANTYL OINT 30GM TOP (07:46)
[2018-05-03] MEDS: DONEPEZIL 5 MG TAB PO (07:46)
[2018-05-03] MEDS: NEBIVOLOL 5 MG TAB (BYSTOLIC) PO (07:46)
[2018-05-03 11:45] LABS: BEDSIDE GLUCOSE 136 MG/DL (83-110)
[2018-05-03 16:42] LABS: BEDSIDE GLUCOSE 152 MG/DL (83-110)
[2018-05-03] MEDS: FUROSEMIDE 40 MG/4 ML VIAL (J1940) IV (17:22)
[2018-05-03] MEDS: SIMVASTATIN 20 MG TAB PO (21:00)
[2018-05-03 21:19] LABS: BEDSIDE GLUCOSE 166 MG/DL (83-110)
[2018-05-04] MEDS: SLF 3 ML SYR IV (05:14)
[2018-05-04 06:18] LABS: BASO % 0.2 % (0.0-1.0); EOS # 0.2 10^3/uL (0.0-0.50); EOS % 2.2 % (0.0-3.0); HEMATOCRIT 24.7 % (42.0-52.0); HEMOGLOBIN 8.1 g/dl (13.5-17.5); IMMATURE GRANULOCYTE % 0.5 % (0-3.0); LYMPH # 1.5 10^3/uL (1.5-4.5); LYMPH % 13.5 % (24.0-44.0); MEAN CORPUSCULAR HGB CONC 32.8 g/dl (32.0-36.5); MEAN CORPUSCULAR VOLUME 91.5 fl (80.0-96.0); MONO # 0.9 10^3/uL (0.0-0.8); MONO % 8.1 % (0.0-5.0); NEUTROPHILS # 8.1 10^3/uL (1.8-7.7); NEUTROPHILS % 75.5 % (36.0-66.0); PLATELET COUNT, AUTOMATED 260 10^3/uL (150-450); RED CELL DISTRIBUTION WIDTH 13.2 % (11.5-14.5); WHITE BLOOD COUNT 10.8 10^3/uL (4.0-10.0)
[2018-05-04 06:44] LABS: ALBUMIN 1.8 GM/DL (3.2-5.2); ALBUMIN/GLOBULIN RATIO 0.55 (1.00-1.93); ALKALINE PHOSPHATASE 91 U/L (45-117); ALT/SGPT 31 U/L (12-78); ANION GAP 8 MEQ/L (8-16); AST/SGOT 23 U/L (7-37); BILIRUBIN,TOTAL 0.5 MG/DL (0.2-1.0); BLOOD UREA NITROGEN 52 MG/DL (7-18); C REACTIVE PROTEIN QUANTITATIV 1.91 MG/DL (0.00-0.30); CALCIUM LEVEL 7.7 MG/DL (8.8-10.2); CARBON DIOXIDE LEVEL 28 MEQ/L (21-32); CHLORIDE LEVEL 108 MEQ/L (98-107); CREATININE FOR GFR 1.69 MG/DL (0.70-1.30); GLOMERULAR FILTRATION RATE 41.3 (>35); GLUCOSE, FASTING 143 MG/DL (70-100); MAGNESIUM LEVEL 1.8 MG/DL (1.8-2.4); POTASSIUM SERUM 4.6 MEQ/L (3.5-5.1); SODIUM LEVEL 144 MEQ/L (136-145); TOTAL PROTEIN 5.1 GM/DL (6.4-8.2)
[2018-05-04] MEDS: NEBIVOLOL 5 MG TAB (BYSTOLIC) PO (08:51)
[2018-05-04] MEDS: ASPIRIN 81 MG ENTERIC TAB PO (08:51)
[2018-05-04] MEDS: DONEPEZIL 5 MG TAB PO (08:51)
[2018-05-04] MEDS: amLODIPine 5 MG TAB PO (08:51)
[2018-05-04] MEDS: HumaLOG INSULIN (NovoLOG) PER UNIT SC (08:51)
[2018-05-04] MEDS: SANTYL OINT 30GM TOP (08:52)
== END 2018-05-04 11:42 | DRG 249 ==
LOC: M ICU 04-19 01:35 → M MSPAV 04-29 14:08 → M PCU 04-19 13:36 → M ED 15:40 → M ED INP 22:42
PROVIDERS: Hospitalist
DX: K52.9 Noninfective gastroenteritis and colitis, unspecified (principal); I63.542 Cerebral infarction due to unspecified occlusion or stenosis of left cerebellar artery; G93.41 Metabolic encephalopathy; N17.9 Acute kidney failure, unspecified; L89.213 Pressure ulcer of right hip, stage 3; M62.82 Rhabdomyolysis; E11.42 Type 2 diabetes mellitus with diabetic polyneuropathy; G31.83 Neurocognitive disorder with Lewy bodies; L89.893 Pressure ulcer of other site, stage 3; I48.91 Unspecified atrial fibrillation; E87.70 Fluid overload, unspecified; I12.9 Hypertensive chronic kidney disease with stage 1 through stage 4 chronic kidney disease, or unspecified chronic kidney disease; L89.891 Pressure ulcer of other site, stage 1; N18.3 Chronic kidney disease, stage 3 (moderate); Z95.1 Presence of aortocoronary bypass graft; F02.80 Dementia in other diseases classified elsewhere, unspecified severity, without behavioral disturbance, psychotic disturbance, mood disturbance, and anxiety; R26.81 Unsteadiness on feet; I25.10 Atherosclerotic heart disease of native coronary artery without angina pectoris; S00.03XA Contusion of scalp, initial encounter; W18.09XA Striking against other object with subsequent fall, initial encounter; Y92.012 Bathroom of single-family (private) house as the place of occurrence of the external cause; Z87.442 Personal history of urinary calculi; Z79.82 Long term (current) use of aspirin; Z79.899 Other long term (current) drug therapy; M48.061 Spinal stenosis, lumbar region without neurogenic claudication; Z66 Do not resuscitate; Z79.84 Long term (current) use of oral hypoglycemic drugs

== ENCOUNTER → 2018-05-12 | Outpatient (REF) ==
[2018-05-12 08:58] LABS: HEMATOCRIT 25.3 % (42.0-52.0); MEAN CORPUSCULAR HEMOGLOBIN 29.6 pg (27.0-33.0); MEAN CORPUSCULAR HGB CONC 31.6 g/dl (32.0-36.5); MEAN CORPUSCULAR VOLUME 93.7 fl (80.0-96.0); PLATELET COUNT, AUTOMATED 289 10^3/uL (150-450); RED CELL DISTRIBUTION WIDTH 12.6 % (11.5-14.5); WHITE BLOOD COUNT 6.4 10^3/uL (4.0-10.0)
[2018-05-12 09:15] LABS: ESTIMATED AVERAGE GLUCOSE 134 MG/DL (60-110); HEMOGLOBIN A1c 6.3 %
[2018-05-12 09:26] LABS: ANION GAP 6 MEQ/L (8-16); BLOOD UREA NITROGEN 58 MG/DL (7-18); CALCIUM LEVEL 7.3 MG/DL (8.8-10.2); CARBON DIOXIDE LEVEL 31 MEQ/L (21-32); CHLORIDE LEVEL 105 MEQ/L (98-107); CHOLESTEROL LEVEL 97 MG/DL (<200); CHOLESTEROL RISK RATIO 3.031 (<5); CREATININE FOR GFR 1.64 MG/DL (0.70-1.30); GLOMERULAR FILTRATION RATE 42.7 (>35); GLUCOSE, FASTING 112 MG/DL (70-100); HDL CHOLESTEROL 32 MG/DL (>40); IRON (FE) 22 UG/DL (65-175); LDL CHOLESTEROL 42.8 MG/DL (<100); NON-HDL-C 65 MG/DL; PERCENT SATURATION 11.1 % (19.7-50.0); POTASSIUM SERUM 4.5 MEQ/L (3.5-5.1); SODIUM LEVEL 142 MEQ/L (136-145); TOTAL IRON BINDING CAPACITY 199 UG/DL (250-450); TRIGLYCERIDES LEVEL 111 MG/DL (<150)
[2018-05-12 10:12] LABS: FOLATE 22.5 NG/ML (>5.4); VITAMIN B12 LEVEL 481 PG/ML (247-911)
== END ==
LOC: SKLAB5 11:08
DX: R41.82 Altered mental status, unspecified (principal); E11.9 Type 2 diabetes mellitus without complications

== ENCOUNTER 2018-05-15 17:41 | Inpatient (IN) | payer BC, MEDICARE ==
[2018-05-15 18:21] LABS: BASO % 0.3 % (0.0-1.0); EOS # 0.1 10^3/uL (0.0-0.50); EOS % 1.4 % (0.0-3.0); HEMATOCRIT 26.3 % (42.0-52.0); HEMOGLOBIN 8.2 g/dl (13.5-17.5); IMMATURE GRANULOCYTE % 0.4 % (0-3.0); LYMPH # 1.2 10^3/uL (1.5-4.5); LYMPH % 12.9 % (24.0-44.0); MEAN CORPUSCULAR HEMOGLOBIN 29.3 pg (27.0-33.0); MEAN CORPUSCULAR HGB CONC 31.2 g/dl (32.0-36.5); MEAN CORPUSCULAR VOLUME 93.9 fl (80.0-96.0); MONO # 0.7 10^3/uL (0.0-0.8); NEUTROPHILS # 7.4 10^3/uL (1.8-7.7); PLATELET COUNT, AUTOMATED 301 10^3/uL (150-450); RED CELL DISTRIBUTION WIDTH 12.8 % (11.5-14.5); WHITE BLOOD COUNT 9.5 10^3/uL (4.0-10.0)
[2018-05-15 18:41] LABS: APPEARANCE, URINE CLOUDY (CLEAR); BACTERIA, URINE AUTO 1+ (NEGATIVE); BILIRUBIN, URINE AUTO NEGATIVE (NEGATIVE); BLOOD, URINE BLOOD 1+ (NEGATIVE); COLOR, URINE YELLOW (YELLOW); GLUCOSE, URINE (UA) AUTO NEGATIVE (NEGATIVE); KETONE, URINE AUTO NEGATIVE (NEGATIVE); LEUKOCYTE ESTERASE, URINE AUTO NEGATIVE (NEGATIVE); MUCUS, URINE SMALL (NEGATIVE); NITRITE, URINE AUTO NEGATIVE (NEGATIVE); PROTEIN, URINE AUTO 1+ mg/dL (NEGATIVE); RBC, URINE AUTO 16 /HPF (0-3); SPECIFIC GRAVITY URINE AUTO 1.014 (1.002-1.035); SQUAMOUS EPITHELIAL CELL UR AU 0 /HPF (0-6); UROBILINOGEN, URINE AUTO 0.2 mg/dL (0.0-2.0); WBC, URINE AUTO 12 /HPF (0-3)
[2018-05-15 18:41] LABS: LACTIC ACID SEPSIS PROTOCOL 1.3 MMOL/L (0.4-2.0)
[2018-05-15 18:42] LABS: ALBUMIN 2.2 GM/DL (3.2-5.2); ALBUMIN/GLOBULIN RATIO 0.56 (1.00-1.93); ALKALINE PHOSPHATASE 97 U/L (45-117); ALT/SGPT 24 U/L (12-78); ANION GAP 5 MEQ/L (8-16); AST/SGOT 22 U/L (7-37); BILIRUBIN,DIRECT < 0.1 MG/DL (0.0-0.2); BILIRUBIN,TOTAL 0.3 MG/DL (0.2-1.0); BLOOD UREA NITROGEN 60 MG/DL (7-18); CALCIUM LEVEL 7.7 MG/DL (8.8-10.2); CARBON DIOXIDE LEVEL 32 MEQ/L (21-32); CHLORIDE LEVEL 107 MEQ/L (98-107); CREATININE FOR GFR 1.86 MG/DL (0.70-1.30); GLOMERULAR FILTRATION RATE 36.9 (>35); GLUCOSE, FASTING 149 MG/DL (70-100); POTASSIUM SERUM 4.7 MEQ/L (3.5-5.1); SODIUM LEVEL 144 MEQ/L (136-145); TOTAL PROTEIN 6.1 GM/DL (6.4-8.2)
[2018-05-15] MEDS ORDERED: ACETAMINOPHEN 650 MG SUPP As Ordered (19:28)
[2018-05-15] MEDS: PIPERACILLIN/TAZOBACTAM SOD 3.375 GM in D5W MINI-BAG PLUS 50 ML IV (19:33)
[2018-05-15] MEDS: ACETAMINOPHEN 650 MG SUPP PR (19:39)
[2018-05-15] MEDS: DONEPEZIL 5 MG TAB PO (21:00)
[2018-05-15] MEDS: SIMVASTATIN 20 MG TAB PO (21:00)
[2018-05-16] MEDS ORDERED: ACETAMINOPHEN 650 MG SUPP PR (01:00)
[2018-05-16] MEDS ORDERED: ACETAMINOPHEN TAB 650MG DOSE (2X325MG) PO (01:00)
[2018-05-16] MEDS ORDERED: ACETAMINOPHEN 325 MG TAB PO (01:00)
[2018-05-16] MEDS ORDERED: BISACODYL 10 MG SUPP PR (01:00)
[2018-05-16] MEDS ORDERED: ONDANSETRON 4 MG TAB (S0181) PO (01:00)
[2018-05-16] MEDS ORDERED: BISACODYL 5 MG TAB PO (01:00)
[2018-05-16] MEDS: D5W/0.9% SODIUM CHLORIDE 1,000 ML IV (02:06)
[2018-05-16] MEDS: ASPIRIN 81 MG CHEW TABLET PO (02:14)
[2018-05-16] MEDS: PIPERACILLIN/TAZOBACTAM SOD 3.375 GM in D5W MINI-BAG PLUS 50 ML IV ×3 (02:22→14:00)
[2018-05-16] MEDS: NEBIVOLOL 5 MG TAB (BYSTOLIC) PO (09:28)
[2018-05-16] MEDS: MULTIVITAMINS/MINERALS THERAP 1 TAB PO (09:28)
[2018-05-16] MEDS: amLODIPine 5 MG TAB PO (09:28)
[2018-05-16] MEDS: SITagliptin 50 MG TAB (JANUVIA) PO (09:28)
[2018-05-16] MEDS ORDERED: DEXTROSE 50% 50 ML SYRINGE IV (11:15)
[2018-05-16] MEDS ORDERED: GLUCOSE 4 GM CHEW TABLET PO (11:15)
[2018-05-16] MEDS ORDERED: GLUCAGON FOR INJ 1 MG VIAL (J1610) SC (11:15)
[2018-05-16 11:31] LABS: HEMATOCRIT 21.6 % (42.0-52.0); MEAN CORPUSCULAR HEMOGLOBIN 29.4 pg (27.0-33.0); MEAN CORPUSCULAR HGB CONC 31.5 g/dl (32.0-36.5); MEAN CORPUSCULAR VOLUME 93.5 fl (80.0-96.0); PLATELET COUNT, AUTOMATED 244 10^3/uL (150-450); RED BLOOD COUNT 2.31 10^6/uL (4.30-6.10)
[2018-05-16 11:40] LABS: HEMOGLOBIN 6.8 g/dl (13.5-17.5)
[2018-05-16] MEDS: HumaLOG INSULIN (NovoLOG) PER UNIT SC (12:00)
[2018-05-16 12:02] LABS: ALBUMIN 1.8 GM/DL (3.2-5.2); ANION GAP 6 MEQ/L (8-16); BLOOD UREA NITROGEN 56 MG/DL (7-18); CALCIUM LEVEL 7.7 MG/DL (8.8-10.2); CARBON DIOXIDE LEVEL 31 MEQ/L (21-32); CHLORIDE LEVEL 110 MEQ/L (98-107); CREATININE FOR GFR 1.82 MG/DL (0.70-1.30); GLOMERULAR FILTRATION RATE 37.9 (>35); GLUCOSE, FASTING 152 MG/DL (70-100); POTASSIUM SERUM 4.2 MEQ/L (3.5-5.1); SODIUM LEVEL 147 MEQ/L (136-145)
[2018-05-16 12:23] LABS: HEMATOCRIT 23.1 % (42.0-52.0); HEMOGLOBIN 7.3 g/dl (13.5-17.5); MEAN CORPUSCULAR HEMOGLOBIN 29.6 pg (27.0-33.0); MEAN CORPUSCULAR HGB CONC 31.6 g/dl (32.0-36.5); MEAN CORPUSCULAR VOLUME 93.5 fl (80.0-96.0); PLATELET COUNT, AUTOMATED 238 10^3/uL (150-450); RED BLOOD COUNT 2.47 10^6/uL (4.30-6.10); RED CELL DISTRIBUTION WIDTH 12.8 % (11.5-14.5); WHITE BLOOD COUNT 12.8 10^3/uL (4.0-10.0)
[2018-05-16] MEDS ORDERED: HumaLOG INSULIN (NovoLOG) PER UNIT SC (21:00)
== END 2018-05-16 15:50 | DRG 137 ==
LOC: M ED INP 05-16 00:47 → M ED 17:41
DX: J69.0 Pneumonitis due to inhalation of food and vomit (principal); N17.9 Acute kidney failure, unspecified; G93.41 Metabolic encephalopathy; E11.22 Type 2 diabetes mellitus with diabetic chronic kidney disease; I48.91 Unspecified atrial fibrillation; F03.90 Unspecified dementia, unspecified severity, without behavioral disturbance, psychotic disturbance, mood disturbance, and anxiety; D64.9 Anemia, unspecified; I25.10 Atherosclerotic heart disease of native coronary artery without angina pectoris; I12.9 Hypertensive chronic kidney disease with stage 1 through stage 4 chronic kidney disease, or unspecified chronic kidney disease; E78.5 Hyperlipidemia, unspecified; N18.9 Chronic kidney disease, unspecified; Z86.73 Personal history of transient ischemic attack (TIA), and cerebral infarction without residual deficits; R26.89 Other abnormalities of gait and mobility; Z95.5 Presence of coronary angioplasty implant and graft; Z66 Do not resuscitate; Z79.82 Long term (current) use of aspirin; Z79.899 Other long term (current) drug therapy